=== PATIENT | male | born 1965 | race Caucasian/White ===

== ENCOUNTER 2022-06-20 16:30 | Inpatient (IN) ==
[2022-06-20] MEDS ORDERED: Naloxone 0.4 MG/ML INJ IVP PRN (19:25)
[2022-06-20] MEDS ORDERED: Melatonin 3 MG TABLET PO PRN (19:25)
[2022-06-20] MEDS ORDERED: Ondansetron ODT 4 MG TAB.RAPDIS SL PRN (19:25)
[2022-06-20] MEDS ORDERED: D5% in Water 1,000 ML IVC PRN (19:37)
[2022-06-20] MEDS ORDERED: Dextrose Gel 15 GM/37.5 ML TUBE PO PRN ×2 (19:37)
[2022-06-20] MEDS ORDERED: *HR* Dextrose 50 % in Water (Syg) 50 ML SYRINGE IVP PRN (19:37)
[2022-06-20] MEDS ORDERED: *HR* HYDROcodone/Acet 5/325 mg TABLET PO PRN (19:59)
[2022-06-20] MEDS ORDERED: 0.9 % Sodium Chloride 1,000 ML IVC SCH (21:00)
[2022-06-20] MEDS: Piperacillin/Tazobactam 3.375 GM in 0.9 % Sodium Chloride Mini Bag 100 ML IVPB SCH (23:40)
[2022-06-21] MEDS: Clindamycin 900 MG/50 ML 900 MG/50 ML IV.SOLN IVPB SCH ×4 (02:02→16:21)
[2022-06-21] MEDS ORDERED: *HR* HYDROcodone/Acet 5/325 mg TABLET PO PRN (02:23)
[2022-06-21] MEDS ORDERED: *HR* HYDROmorphone (PF) 1 MG/ML SYRINGE IVP ONE (02:23)
[2022-06-21 02:47] LABS: Basophils # 0.1 K/mcL (0.0-0.2); Basophils % 0.9 %; Eosinophils # 0.4 K/mcL (0.0-0.6); Eosinophils % 3.1 %; Hematocrit 38.3 % (37.5-50.1); Hemoglobin 12.6 g/dL (12.9-16.9); Immature Granulocytes % 0.7 % (0-4); Lymphocytes # 2.3 K/mcL (0.6-4.6); Lymphocytes % 18.2 %; Mean Corpuscular HGB Conc 32.9 g/dL (31.6-35.5); Mean Corpuscular Hemoglobin 29.6 pg (28.0-33.3); Mean Corpuscular Volume 90.1 fL (83.0-100.0); Mean Platelet Volume 8.8 fL (9.4-12.4); Monocytes % 7.9 %; Neutrophils # 8.9 K/mcL (1.6-8.9); Platelet Count 356 K/mcL (140-400); Red Blood Count 4.25 M/mcL (4.19-5.50); Red Cell Distribution Width 12.4 % (11.5-14.5); Segmented Neutrophils % 69.2 %; White Blood Count 12.8 K/mcL (4.3-11.1)
[2022-06-21 03:02] LABS: Calcium 8.1 mg/dL (8.6-10.3); Magnesium 1.7 mg/dL (1.6-2.6); Phosphorous 2.8 mg/dL (2.7-4.5); Potassium 3.5 mEq/L (3.5-5.1)
[2022-06-21] MEDS: Insulin LISPRO 300 UNITS/3 ML VIAL SUBQ SCH ×4 (03:56→18:14)
[2022-06-21] MEDS ORDERED: *HR* HYDROcodone/Acet 10/325 mg TABLET PO PRN (05:00)
[2022-06-21] MEDS ORDERED: Vancomycin 1,500 MG/265 ML IV.SOLN IVPB SCH (05:00)
[2022-06-21] MEDS: Piperacillin/Tazobactam 3.375 GM in 0.9 % Sodium Chloride Mini Bag 100 ML IVPB SCH ×3 (06:18→22:04)
[2022-06-21] MEDS ORDERED: Bupivacaine 0.5%-Epi 1:200,000 50 ML VIAL ONE (07:12)
[2022-06-21] MEDS ORDERED: *HR* Midazolam HCl 2 MG/2 ML VIAL ONE (07:32)
[2022-06-21] MEDS ORDERED: Ondansetron 4 MG/2 ML VIAL ONE (07:32)
[2022-06-21] MEDS ORDERED: *HR* FentaNYL (PF) 100 MCG/2 ML VIAL ONE ×2 (07:32→08:30)
[2022-06-21] MEDS ORDERED: Lidocaine -MPF 2% 5 ML VIAL ONE (07:32)
[2022-06-21] MEDS ORDERED: *HR* Propofol 200 MG/20 ML VIAL IVP ONE ×2 (07:33→08:50)
[2022-06-21] MEDS ORDERED: Lidocaine 1% 20 ML MDV ONE (08:10)
[2022-06-21] MEDS ORDERED: Ketamine HCL *QUVA* 50mg (1mL) SYRINGE ONE (08:30)
[2022-06-21] MEDS ORDERED: Nicotine 14 MG PATCH.TD24 TD SCH (09:00)
[2022-06-21] MEDS ORDERED: D5% in Water 1,000 ML IVC PRN (10:20)
[2022-06-21] MEDS ORDERED: *HR* Dextrose 50 % in Water (Syg) 50 ML SYRINGE IVP PRN (10:20)
[2022-06-21] MEDS ORDERED: Naloxone 0.4 MG/ML INJ IVP PRN (10:20)
[2022-06-21] MEDS ORDERED: Dextrose Gel 15 GM/37.5 ML TUBE PO PRN ×2 (10:20)
[2022-06-21] MEDS ORDERED: Ondansetron ODT 4 MG TAB.RAPDIS SL PRN (10:20)
[2022-06-21] MEDS: ALPRAZolam 1 MG TABLET PO SCH ×2 (14:32→22:04)
[2022-06-21] MEDS ORDERED: Clindamycin 900 MG/50 ML 900 MG/50 ML IV.SOLN IVPB SCH (16:00)
[2022-06-21] MEDS: *HR* HYDROcodone/Acet 5/325 mg TABLET PO PRN (16:21)
[2022-06-21] MEDS: Vancomycin 1,500 MG/265 ML IV.SOLN IVPB SCH (20:30)
[2022-06-21] MEDS: QUEtiapine Fumarate 25 MG TABLET PO SCH (22:04)
[2022-06-21] MEDS: rOPINIRole 1 MG TABLET PO SCH (22:04)
[2022-06-22] MEDS: Clindamycin 900 MG/50 ML 900 MG/50 ML IV.SOLN IVPB SCH ×3 (00:36→17:17)
[2022-06-22] MEDS: Insulin LISPRO 300 UNITS/3 ML VIAL SUBQ SCH ×4 (01:37→17:02)
[2022-06-22 06:33] LABS: Basophils # 0.1 K/mcL (0.0-0.2); Basophils % 0.6 %; Eosinophils # 0.3 K/mcL (0.0-0.6); Eosinophils % 2.6 %; Hematocrit 33.1 % (37.5-50.1); Hemoglobin 10.6 g/dL (12.9-16.9); Immature Granulocytes % 0.8 % (0-4); Lymphocytes # 1.2 K/mcL (0.6-4.6); Lymphocytes % 10.9 %; Mean Corpuscular Hemoglobin 29.9 pg (28.0-33.3); Mean Corpuscular Volume 93.5 fL (83.0-100.0); Mean Platelet Volume 8.7 fL (9.4-12.4); Monocytes # 0.9 K/mcL (0.0-1.3); Monocytes % 7.7 %; Neutrophils # 8.8 K/mcL (1.6-8.9); Platelet Count 217 K/mcL (140-400); Red Blood Count 3.54 M/mcL (4.19-5.50); Red Cell Distribution Width 12.5 % (11.5-14.5); Segmented Neutrophils % 77.4 %; White Blood Count 11.4 K/mcL (4.3-11.1)
[2022-06-22] MEDS: *HR* HYDROcodone/Acet 5/325 mg TABLET PO PRN (06:40)
[2022-06-22] MEDS: Piperacillin/Tazobactam 3.375 GM in 0.9 % Sodium Chloride Mini Bag 100 ML IVPB SCH ×3 (06:41→21:06)
[2022-06-22 06:46] LABS: Calcium 8.3 mg/dL (8.6-10.3); Potassium 3.6 mEq/L (3.5-5.1)
[2022-06-22] MEDS: Vancomycin 1,500 MG/265 ML IV.SOLN IVPB SCH (08:45)
[2022-06-22] MEDS: lisinopriL 20 MG TABLET PO SCH (09:48)
[2022-06-22] MEDS: QUEtiapine Fumarate 25 MG TABLET PO SCH ×2 (09:49→21:07)
[2022-06-22] MEDS: Nicotine 14 MG PATCH.TD24 TD SCH (09:49)
[2022-06-22] MEDS: amLODIPine 5 MG TABLET PO SCH (09:49)
[2022-06-22] MEDS: ALPRAZolam 1 MG TABLET PO SCH ×3 (09:49→21:07)
[2022-06-22] MEDS: *HR* HYDROcodone/Acet 10/325 mg TABLET PO PRN ×2 (10:09→16:11)
[2022-06-22] MEDS: Vancomycin 1,750 MG/517.5 ML IV.SOLN IVPB SCH ×2 (11:11→21:06)
[2022-06-22] MEDS: rOPINIRole 1 MG TABLET PO SCH (21:07)
[2022-06-23] MEDS: Clindamycin 900 MG/50 ML 900 MG/50 ML IV.SOLN IVPB SCH ×2 (00:05→14:41)
[2022-06-23] MEDS: Insulin LISPRO 300 UNITS/3 ML VIAL SUBQ SCH ×5 (01:20→23:56)
[2022-06-23 02:47] LABS: Basophils # 0.1 K/mcL (0.0-0.2); Basophils % 0.8 %; Eosinophils # 0.5 K/mcL (0.0-0.6); Eosinophils % 3.7 %; Hematocrit 34.9 % (37.5-50.1); Hemoglobin 11.4 g/dL (12.9-16.9); Immature Granulocytes % 0.8 % (0-4); Mean Corpuscular HGB Conc 32.7 g/dL (31.6-35.5); Mean Corpuscular Hemoglobin 29.4 pg (28.0-33.3); Mean Corpuscular Volume 89.9 fL (83.0-100.0); Mean Platelet Volume 8.7 fL (9.4-12.4); Monocytes # 1.1 K/mcL (0.0-1.3); Neutrophils # 8.6 K/mcL (1.6-8.9); Platelet Count 332 K/mcL (140-400); Red Blood Count 3.88 M/mcL (4.19-5.50); Red Cell Distribution Width 12.2 % (11.5-14.5); Segmented Neutrophils % 69.7 %; White Blood Count 12.4 K/mcL (4.3-11.1)
[2022-06-23 03:01] LABS: Calcium 8.1 mg/dL (8.6-10.3); Potassium 3.5 mEq/L (3.5-5.1)
[2022-06-23] MEDS: Piperacillin/Tazobactam 3.375 GM in 0.9 % Sodium Chloride Mini Bag 100 ML IVPB SCH ×3 (06:51→19:50)
[2022-06-23] MEDS: *HR* Enoxaparin 40 MG/0.4 ML SYRINGE SQ SCH (06:51)
[2022-06-23] MEDS: *HR* HYDROcodone/Acet 10/325 mg TABLET PO PRN (06:51)
[2022-06-23] MEDS ORDERED: Iopamidol - 370 500 ML MLS IVP ONE (09:02)
[2022-06-23] MEDS: Nicotine 14 MG PATCH.TD24 TD SCH (09:41)
[2022-06-23] MEDS: ALPRAZolam 1 MG TABLET PO SCH ×3 (09:42→19:40)
[2022-06-23] MEDS: amLODIPine 5 MG TABLET PO SCH (09:42)
[2022-06-23] MEDS: lisinopriL 20 MG TABLET PO SCH (09:42)
[2022-06-23] MEDS: QUEtiapine Fumarate 25 MG TABLET PO SCH ×2 (09:42→19:40)
[2022-06-23] MEDS: Vancomycin 1,750 MG/517.5 ML IV.SOLN IVPB SCH (10:24)
[2022-06-23] MEDS ORDERED: *HR* LORazepam 1 MG TABLET PO PRN ×3 (12:38)
[2022-06-23] MEDS: Aspirin Enteric Coated 81 MG Tablet PO SCH (14:21)
[2022-06-23] MEDS: *HR* HYDROcodone/Acet 5/325 mg TABLET PO PRN (18:30)
[2022-06-23] MEDS: rOPINIRole 1 MG TABLET PO SCH (19:40)
[2022-06-24] MEDS: *HR* Enoxaparin 40 MG/0.4 ML SYRINGE SQ SCH (04:55)
[2022-06-24] MEDS: Piperacillin/Tazobactam 3.375 GM in 0.9 % Sodium Chloride Mini Bag 100 ML IVPB SCH ×3 (04:57→21:54)
[2022-06-24] MEDS: Vancomycin 1,500 MG/265 ML IV.SOLN IVPB SCH ×2 (05:00→17:10)
[2022-06-24] MEDS: Insulin LISPRO 300 UNITS/3 ML VIAL SUBQ SCH ×4 (05:22→22:06)
[2022-06-24] MEDS: Aspirin Enteric Coated 81 MG Tablet PO SCH (09:31)
[2022-06-24] MEDS: amLODIPine 5 MG TABLET PO SCH (09:31)
[2022-06-24] MEDS: ALPRAZolam 1 MG TABLET PO SCH ×3 (09:31→21:53)
[2022-06-24] MEDS: lisinopriL 20 MG TABLET PO SCH (09:32)
[2022-06-24] MEDS: Nicotine 14 MG PATCH.TD24 TD SCH (09:32)
[2022-06-24] MEDS: QUEtiapine Fumarate 25 MG TABLET PO SCH ×2 (09:32→21:54)
[2022-06-24] MEDS: Folic Acid 1 MG TABLET PO SCH (09:32)
[2022-06-24] MEDS: Thiamine (B-1) 100 MG TABLET PO SCH (09:32)
[2022-06-24 10:53] LABS: Basophils # 0.1 K/mcL (0.0-0.2); Eosinophils # 0.6 K/mcL (0.0-0.6); Eosinophils % 4.9 %; Hematocrit 36.5 % (37.5-50.1); Hemoglobin 11.9 g/dL (12.9-16.9); Immature Granulocytes % 0.9 % (0-4); Lymphocytes # 1.5 K/mcL (0.6-4.6); Mean Corpuscular HGB Conc 32.6 g/dL (31.6-35.5); Mean Corpuscular Hemoglobin 29.5 pg (28.0-33.3); Mean Corpuscular Volume 90.3 fL (83.0-100.0); Mean Platelet Volume 8.5 fL (9.4-12.4); Monocytes # 0.9 K/mcL (0.0-1.3); Monocytes % 7.6 %; Neutrophils # 8.2 K/mcL (1.6-8.9); Platelet Count 379 K/mcL (140-400); Red Blood Count 4.04 M/mcL (4.19-5.50); Red Cell Distribution Width 12.3 % (11.5-14.5); Segmented Neutrophils % 72.6 %; White Blood Count 11.3 K/mcL (4.3-11.1)
[2022-06-24 11:13] LABS: Calcium 8.4 mg/dL (8.6-10.3); Potassium 3.5 mEq/L (3.5-5.1)
[2022-06-24] MEDS: *HR* HYDROcodone/Acet 5/325 mg TABLET PO PRN (15:22)
[2022-06-24] MEDS: carvediloL 6.25 MG TABLET PO SCH (17:10)
[2022-06-24] MEDS: rOPINIRole 1 MG TABLET PO SCH (21:54)
[2022-06-25 03:27] LABS: Basophils # 0.1 K/mcL (0.0-0.2); Basophils % 1.1 %; Eosinophils # 0.6 K/mcL (0.0-0.6); Eosinophils % 6.5 %; Hematocrit 35.4 % (37.5-50.1); Hemoglobin 11.6 g/dL (12.9-16.9); Immature Granulocytes % 1.4 % (0-4); Lymphocytes % 19.8 %; Mean Corpuscular HGB Conc 32.8 g/dL (31.6-35.5); Mean Corpuscular Hemoglobin 29.4 pg (28.0-33.3); Mean Corpuscular Volume 89.6 fL (83.0-100.0); Mean Platelet Volume 8.8 fL (9.4-12.4); Monocytes # 0.9 K/mcL (0.0-1.3); Monocytes % 9.2 %; Neutrophils # 6.1 K/mcL (1.6-8.9); Platelet Count 359 K/mcL (140-400); Red Blood Count 3.95 M/mcL (4.19-5.50); Red Cell Distribution Width 12.3 % (11.5-14.5); White Blood Count 9.9 K/mcL (4.3-11.1)
[2022-06-25 03:47] LABS: Calcium 8.4 mg/dL (8.6-10.3); Potassium 3.4 mEq/L (3.5-5.1)
[2022-06-25] MEDS: Vancomycin 1,500 MG/265 ML IV.SOLN IVPB SCH ×2 (06:10→19:37)
[2022-06-25] MEDS: Piperacillin/Tazobactam 3.375 GM in 0.9 % Sodium Chloride Mini Bag 100 ML IVPB SCH (06:10)
[2022-06-25] MEDS: *HR* Enoxaparin 40 MG/0.4 ML SYRINGE SQ SCH (06:16)
[2022-06-25] MEDS: lisinopriL 20 MG TABLET PO SCH (09:23)
[2022-06-25] MEDS: ALPRAZolam 1 MG TABLET PO SCH ×3 (09:23→21:43)
[2022-06-25] MEDS: Thiamine (B-1) 100 MG TABLET PO SCH (09:23)
[2022-06-25] MEDS: Aspirin Enteric Coated 81 MG Tablet PO SCH (09:23)
[2022-06-25] MEDS: QUEtiapine Fumarate 25 MG TABLET PO SCH ×2 (09:23→21:43)
[2022-06-25] MEDS: Folic Acid 1 MG TABLET PO SCH (09:23)
[2022-06-25] MEDS: amLODIPine 5 MG TABLET PO SCH (09:23)
[2022-06-25] MEDS: carvediloL 6.25 MG TABLET PO SCH ×2 (09:23→18:07)
[2022-06-25] MEDS: Ertapenem 1,000 MG in 0.9 % Sodium Chloride Mini Bag 100 ML IVPB SCH (09:24)
[2022-06-25] MEDS: Insulin LISPRO 300 UNITS/3 ML VIAL SUBQ SCH ×4 (09:25→21:45)
[2022-06-25] MEDS ORDERED: Heparin 1,000 UNITS/500 mL 500 ML ONE (11:34)
[2022-06-25] MEDS ORDERED: *HR* Heparin 10,000 UNIT/10 ML VIAL ONE (11:34)
[2022-06-25] MEDS ORDERED: Iopamidol - 300 100 ML INFUS..BTL ONE (11:34)
[2022-06-25] MEDS ORDERED: 0.9 % Sodium Chloride 1,000 ML ONE (11:34)
[2022-06-25] MEDS ORDERED: *HR* Midazolam HCl 2 MG/2 ML VIAL ONE (11:34)
[2022-06-25] MEDS: Nicotine 14 MG PATCH.TD24 TD SCH (12:50)
[2022-06-25 15:33] LABS: Estimated Average Glucose 258 mg/dl; Hemoglobin A1C 10.6 %
[2022-06-25] MEDS: *HR* HYDROcodone/Acet 5/325 mg TABLET PO PRN (21:44)
[2022-06-25] MEDS: rOPINIRole 1 MG TABLET PO SCH (21:45)
[2022-06-26] MEDS ORDERED: Regadenoson 0.4 MG/5 ML SYRINGE IVP ONE (06:22)
[2022-06-26] MEDS: *HR* Enoxaparin 40 MG/0.4 ML SYRINGE SQ SCH (06:44)
[2022-06-26] MEDS: amLODIPine 5 MG TABLET PO SCH (08:09)
[2022-06-26] MEDS: carvediloL 6.25 MG TABLET PO SCH ×2 (08:09→18:00)
[2022-06-26] MEDS: Folic Acid 1 MG TABLET PO SCH (08:09)
[2022-06-26] MEDS: ALPRAZolam 1 MG TABLET PO SCH ×3 (08:09→21:34)
[2022-06-26] MEDS: lisinopriL 20 MG TABLET PO SCH (08:09)
[2022-06-26] MEDS: Thiamine (B-1) 100 MG TABLET PO SCH (08:09)
[2022-06-26] MEDS: Aspirin Enteric Coated 81 MG Tablet PO SCH (08:10)
[2022-06-26] MEDS: QUEtiapine Fumarate 25 MG TABLET PO SCH ×2 (08:10→21:34)
[2022-06-26] MEDS: Ertapenem 1,000 MG in 0.9 % Sodium Chloride Mini Bag 100 ML IVPB SCH (08:10)
[2022-06-26] MEDS: Insulin LISPRO 300 UNITS/3 ML VIAL SUBQ SCH ×4 (08:11→21:33)
[2022-06-26 08:43] LABS: Basophils # 0.1 K/mcL (0.0-0.2); Eosinophils # 0.7 K/mcL (0.0-0.6); Eosinophils % 6.6 %; Hematocrit 36.1 % (37.5-50.1); Hemoglobin 11.8 g/dL (12.9-16.9); Immature Granulocytes % 1.9 % (0-4); Lymphocytes # 1.7 K/mcL (0.6-4.6); Lymphocytes % 17.2 %; Mean Corpuscular HGB Conc 32.7 g/dL (31.6-35.5); Mean Corpuscular Hemoglobin 29.5 pg (28.0-33.3); Mean Corpuscular Volume 90.3 fL (83.0-100.0); Mean Platelet Volume 8.8 fL (9.4-12.4); Monocytes # 1.1 K/mcL (0.0-1.3); Neutrophils # 6.2 K/mcL (1.6-8.9); Platelet Count 362 K/mcL (140-400); Red Cell Distribution Width 12.4 % (11.5-14.5); Segmented Neutrophils % 62.3 %; White Blood Count 9.9 K/mcL (4.3-11.1)
[2022-06-26 09:17] LABS: Calcium 8.2 mg/dL (8.6-10.3); Potassium 3.4 mEq/L (3.5-5.1)
[2022-06-26] MEDS: *HR* HYDROcodone/Acet 5/325 mg TABLET PO PRN (11:53)
[2022-06-26] MEDS: Vancomycin 1,250 MG/262.5 ML IV.SOLN IVPB SCH (11:54)
[2022-06-26] MEDS: hydrALAZINE 25 MG TABLET PO SCH ×2 (18:01→23:44)
[2022-06-26] MEDS ORDERED: Insulin DETEMIR 100 UNIT/ML X5UNITS SUBQ SCH (21:00)
[2022-06-26] MEDS: Melatonin 3 MG TABLET PO PRN (21:34)
[2022-06-26] MEDS: rOPINIRole 1 MG TABLET PO SCH (21:34)
[2022-06-27 05:38] LABS: Basophils # 0.1 K/mcL (0.0-0.2); Basophils % 0.9 %; Eosinophils # 0.6 K/mcL (0.0-0.6); Hematocrit 35.8 % (37.5-50.1); Hemoglobin 11.7 g/dL (12.9-16.9); Immature Granulocytes % 1.5 % (0-4); Lymphocytes # 1.8 K/mcL (0.6-4.6); Lymphocytes % 16.8 %; Mean Corpuscular HGB Conc 32.7 g/dL (31.6-35.5); Mean Corpuscular Hemoglobin 29.5 pg (28.0-33.3); Mean Corpuscular Volume 90.4 fL (83.0-100.0); Mean Platelet Volume 8.7 fL (9.4-12.4); Monocytes % 9.3 %; Platelet Count 379 K/mcL (140-400); Red Blood Count 3.96 M/mcL (4.19-5.50); Red Cell Distribution Width 12.3 % (11.5-14.5); Segmented Neutrophils % 65.5 %; White Blood Count 10.7 K/mcL (4.3-11.1)
[2022-06-27 05:46] LABS: Calcium 8.6 mg/dL (8.6-10.3); Potassium 3.5 mEq/L (3.5-5.1)
[2022-06-27] MEDS ORDERED: Regadenoson 0.4 MG/5 ML SYRINGE IVP ONE ×2 (06:04→09:35)
[2022-06-27] MEDS: carvediloL 6.25 MG TABLET PO SCH ×2 (07:20→16:04)
[2022-06-27] MEDS: *HR* Enoxaparin 40 MG/0.4 ML SYRINGE SQ SCH ×2 (07:20→20:39)
[2022-06-27] MEDS: Insulin LISPRO 300 UNITS/3 ML VIAL SUBQ SCH ×4 (07:20→22:00)
[2022-06-27] MEDS: amLODIPine 5 MG TABLET PO SCH (07:23)
[2022-06-27] MEDS: hydrALAZINE 25 MG TABLET PO SCH ×2 (07:23→16:04)
[2022-06-27] MEDS: Folic Acid 1 MG TABLET PO SCH (07:23)
[2022-06-27] MEDS: Aspirin Enteric Coated 81 MG Tablet PO SCH (07:23)
[2022-06-27] MEDS: lisinopriL 20 MG TABLET PO SCH (07:24)
[2022-06-27] MEDS: Thiamine (B-1) 100 MG TABLET PO SCH (07:24)
[2022-06-27] MEDS: ALPRAZolam 1 MG TABLET PO SCH ×4 (07:24→21:59)
[2022-06-27] MEDS: QUEtiapine Fumarate 25 MG TABLET PO SCH ×2 (07:24→21:59)
[2022-06-27] MEDS: Ertapenem 1,000 MG in 0.9 % Sodium Chloride Mini Bag 100 ML IVPB SCH (09:07)
[2022-06-27] MEDS: *HR* HYDROcodone/Acet 5/325 mg TABLET PO PRN ×2 (12:58→18:36)
[2022-06-27] MEDS: Vancomycin 1,250 MG/262.5 ML IV.SOLN IVPB SCH (13:00)
[2022-06-27] MEDS ORDERED: Vancomycin 1,000 MG, Sodium Chloride IRRigation 1,000 ML IR ONE (15:05)
[2022-06-27] MEDS ORDERED: Insulin DETEMIR 100 UNIT/ML X5UNITS SUBQ SCH (21:00)
[2022-06-27] MEDS: rOPINIRole 1 MG TABLET PO SCH (21:56)
[2022-06-28] MEDS: hydrALAZINE 25 MG TABLET PO SCH ×4 (00:48→23:14)
[2022-06-28 03:00] LABS: Calcium 8.1 mg/dL (8.6-10.3); Potassium 3.5 mEq/L (3.5-5.1)
[2022-06-28] MEDS: QUEtiapine Fumarate 25 MG TABLET PO SCH ×2 (07:47→20:33)
[2022-06-28] MEDS: Aspirin Enteric Coated 81 MG Tablet PO SCH (07:47)
[2022-06-28] MEDS: lisinopriL 20 MG TABLET PO SCH (07:47)
[2022-06-28] MEDS: Insulin LISPRO 300 UNITS/3 ML VIAL SUBQ SCH ×4 (07:47→20:33)
[2022-06-28] MEDS: Thiamine (B-1) 100 MG TABLET PO SCH (07:47)
[2022-06-28] MEDS: amLODIPine 5 MG TABLET PO SCH (07:47)
[2022-06-28] MEDS: Folic Acid 1 MG TABLET PO SCH (07:47)
[2022-06-28] MEDS: carvediloL 6.25 MG TABLET PO SCH ×2 (07:47→16:46)
[2022-06-28] MEDS: ALPRAZolam 1 MG TABLET PO SCH ×3 (07:47→20:32)
[2022-06-28] MEDS: Ertapenem 1,000 MG in 0.9 % Sodium Chloride Mini Bag 100 ML IVPB SCH (07:48)
[2022-06-28] MEDS: Vancomycin 1,250 MG/262.5 ML IV.SOLN IVPB SCH (10:45)
[2022-06-28] MEDS: rOPINIRole 1 MG TABLET PO SCH (20:32)
[2022-06-28] MEDS: *HR* HYDROcodone/Acet 5/325 mg TABLET PO PRN (20:32)
[2022-06-28] MEDS: Melatonin 3 MG TABLET PO PRN (20:33)
[2022-06-28] MEDS ORDERED: Insulin DETEMIR 100 UNIT/ML X5UNITS SUBQ SCH (21:00)
[2022-06-29 01:33] LABS: Basophils # 0.1 K/mcL (0.0-0.2); Basophils % 1.3 %; Eosinophils # 0.4 K/mcL (0.0-0.6); Eosinophils % 8.4 %; Hematocrit 34.7 % (37.5-50.1); Hemoglobin 11.2 g/dL (12.9-16.9); Immature Granulocytes % 2.7 % (0-4); Lymphocytes # 0.7 K/mcL (0.6-4.6); Lymphocytes % 13.6 %; Mean Corpuscular HGB Conc 32.3 g/dL (31.6-35.5); Mean Corpuscular Hemoglobin 29.2 pg (28.0-33.3); Mean Corpuscular Volume 90.6 fL (83.0-100.0); Mean Platelet Volume 8.7 fL (9.4-12.4); Monocytes # 0.9 K/mcL (0.0-1.3); Monocytes % 18.2 %; Neutrophils # 2.7 K/mcL (1.6-8.9); Platelet Count 356 K/mcL (140-400); Red Blood Count 3.83 M/mcL (4.19-5.50); Red Cell Distribution Width 12.3 % (11.5-14.5); Segmented Neutrophils % 55.8 %
[2022-06-29 01:40] LABS: White Blood Count 4.8 K/mcL (4.3-11.1)
[2022-06-29 01:55] LABS: Platelet Estimate Normal (Normal)
[2022-06-29 01:57] LABS: Calcium 8.3 mg/dL (8.6-10.3); Potassium 3.7 mEq/L (3.5-5.1)
[2022-06-29] MEDS: *HR* Enoxaparin 40 MG/0.4 ML SYRINGE SQ SCH (06:27)
[2022-06-29] MEDS: ALPRAZolam 1 MG TABLET PO SCH ×3 (09:46→21:00)
[2022-06-29] MEDS: Thiamine (B-1) 100 MG TABLET PO SCH (09:46)
[2022-06-29] MEDS: QUEtiapine Fumarate 25 MG TABLET PO SCH ×2 (09:46→21:29)
[2022-06-29] MEDS: *HR* HYDROcodone/Acet 5/325 mg TABLET PO PRN (09:46)
[2022-06-29] MEDS: Aspirin Enteric Coated 81 MG Tablet PO SCH (09:46)
[2022-06-29] MEDS: carvediloL 6.25 MG TABLET PO SCH ×2 (09:46→17:18)
[2022-06-29] MEDS: lisinopriL 20 MG TABLET PO SCH (09:46)
[2022-06-29] MEDS: Folic Acid 1 MG TABLET PO SCH (09:46)
[2022-06-29] MEDS: amLODIPine 5 MG TABLET PO SCH (09:47)
[2022-06-29] MEDS: hydrALAZINE 25 MG TABLET PO SCH ×2 (09:47→17:18)
[2022-06-29] MEDS: Ertapenem 1,000 MG in 0.9 % Sodium Chloride Mini Bag 100 ML IVPB SCH (09:47)
[2022-06-29] MEDS: Insulin LISPRO 300 UNITS/3 ML VIAL SUBQ SCH ×3 (09:48→17:18)
[2022-06-29] MEDS: Vancomycin 1,250 MG/262.5 ML IV.SOLN IVPB SCH (12:27)
[2022-06-29] MEDS: Melatonin 3 MG TABLET PO PRN (21:29)
[2022-06-29] MEDS: Insulin DETEMIR 100 UNIT/ML X5UNITS SUBQ SCH (21:29)
[2022-06-29] MEDS: rOPINIRole 1 MG TABLET PO SCH (21:29)
[2022-06-30] MEDS: Insulin LISPRO 300 UNITS/3 ML VIAL SUBQ SCH ×5 (02:11→21:13)
[2022-06-30] MEDS: hydrALAZINE 25 MG TABLET PO SCH ×3 (02:11→18:38)
[2022-06-30 02:31] LABS: Calcium 8.3 mg/dL (8.6-10.3); Potassium 3.4 mEq/L (3.5-5.1)
[2022-06-30] MEDS: *HR* Enoxaparin 40 MG/0.4 ML SYRINGE SQ SCH (04:01)
[2022-06-30] MEDS: Aspirin Enteric Coated 81 MG Tablet PO SCH (08:20)
[2022-06-30] MEDS: carvediloL 6.25 MG TABLET PO SCH ×2 (08:20→18:38)
[2022-06-30] MEDS: ALPRAZolam 1 MG TABLET PO SCH ×3 (08:20→21:12)
[2022-06-30] MEDS: Thiamine (B-1) 100 MG TABLET PO SCH (08:20)
[2022-06-30] MEDS: QUEtiapine Fumarate 25 MG TABLET PO SCH ×2 (08:20→20:54)
[2022-06-30] MEDS: amLODIPine 5 MG TABLET PO SCH (08:20)
[2022-06-30] MEDS: Folic Acid 1 MG TABLET PO SCH (08:20)
[2022-06-30] MEDS: 0.9 % Sodium Chloride 1,000 ML IVC SCH ×2 (08:21→23:08)
[2022-06-30] MEDS: Ertapenem 1,000 MG in 0.9 % Sodium Chloride Mini Bag 100 ML IVPB SCH (08:22)
[2022-06-30] MEDS: Vancomycin 1,250 MG/262.5 ML IV.SOLN IVPB SCH (11:38)
[2022-06-30 13:15] LABS: Potassium 3.7 mEq/L (3.5-5.1)
[2022-06-30] MEDS ORDERED: Iopamidol - 370 200 ML INFUS..BTL ONE (13:44)
[2022-06-30] MEDS ORDERED: Heparin 1,000 UNITS/500 mL 500 ML ONE (13:44)
[2022-06-30] MEDS ORDERED: Nitroglycerin 1,000 MCG/5 ML VIAL IV ONE (13:44)
[2022-06-30] MEDS ORDERED: *HR* Heparin 10,000 UNIT/10 ML VIAL ONE ×2 (13:44→15:04)
[2022-06-30] MEDS ORDERED: 0.9 % Sodium Chloride 1,000 ML ONE ×2 (13:44→14:07)
[2022-06-30] MEDS ORDERED: *HR* FentaNYL (PF) 100 MCG/2 ML VIAL ONE ×2 (13:49→16:15)
[2022-06-30] MEDS ORDERED: *HR* Midazolam HCl 2 MG/2 ML VIAL ONE (13:49)
[2022-06-30] MEDS ORDERED: Vancomycin 1,000 MG, Sodium Chloride IRRigation 1,000 ML IR ONE (14:20)
[2022-06-30 18:18] LABS: INR 1.1; Prothrombin Time 11.8 Seconds (9.4-12.1)
[2022-06-30 18:21] LABS: Activated Partial Thrombo Time 37.1 Seconds (26.0-36.0)
[2022-06-30 18:28] LABS: Chol/HDL Ratio 4.3 (0-4.9)
[2022-06-30] MEDS: rOPINIRole 1 MG TABLET PO SCH (20:54)
[2022-06-30] MEDS: Chlorhexidine Rinse 15 ML MOUTHWASH MM SCH (20:54)
[2022-06-30] MEDS: Melatonin 3 MG TABLET PO PRN (20:55)
[2022-06-30] MEDS: Insulin DETEMIR 100 UNIT/ML X5UNITS SUBQ SCH (21:13)
[2022-07-01] MEDS: hydrALAZINE 25 MG TABLET PO SCH ×4 (00:07→23:48)
[2022-07-01 03:03] LABS: Basophils % 1.1 %; Eosinophils # 0.3 K/mcL (0.0-0.6); Eosinophils % 6.9 %; Hematocrit 32.6 % (37.5-50.1); Hemoglobin 10.5 g/dL (12.9-16.9); Immature Granulocytes % 1.3 % (0-4); Lymphocytes # 1.2 K/mcL (0.6-4.6); Lymphocytes % 30.6 %; Mean Corpuscular HGB Conc 32.2 g/dL (31.6-35.5); Mean Corpuscular Hemoglobin 28.9 pg (28.0-33.3); Mean Corpuscular Volume 89.8 fL (83.0-100.0); Monocytes # 0.6 K/mcL (0.0-1.3); Monocytes % 16.4 %; Neutrophils # 1.7 K/mcL (1.6-8.9); Platelet Count 287 K/mcL (140-400); Red Blood Count 3.63 M/mcL (4.19-5.50); Red Cell Distribution Width 12.3 % (11.5-14.5); Segmented Neutrophils % 43.7 %; White Blood Count 3.8 K/mcL (4.3-11.1)
[2022-07-01 03:06] LABS: Calcium 7.8 mg/dL (8.6-10.3); Potassium 3.6 mEq/L (3.5-5.1)
[2022-07-01] MEDS: *HR* Enoxaparin 40 MG/0.4 ML SYRINGE SQ SCH (04:49)
[2022-07-01] MEDS ORDERED: NiCARdipine 2.5 MG/10 ML Syringe IVPB ONE (05:57)
[2022-07-01] MEDS ORDERED: DOBUTamine 1,000 MG/250 ML BAG ONE (05:57)
[2022-07-01] MEDS ORDERED: del Nido Cardioplegia Solution PF ONE ×2 (08:00)
[2022-07-01] MEDS ORDERED: Norepinephrine 4 MG in 0.9 % Sodium Chloride 250 ML IVC PRN (08:00)
[2022-07-01] MEDS ORDERED: Heparin 15,000 UNIT in 0.9 % Sodium Chloride 500 ML IR ONE (08:00)
[2022-07-01] MEDS ORDERED: Buckersberg's Blood Cardioplegia PF ONE (08:00)
[2022-07-01] MEDS ORDERED: *HR* Midazolam HCl 5 MG/5 ML VIAL IVP ONE (08:02)
[2022-07-01] MEDS ORDERED: *HR* FentaNYL (PF) 1,000 MCG/20 ML VIAL ONE (08:02)
[2022-07-01] MEDS ORDERED: niCARdipine 20 MG/200 ML MLS IVC ONE (08:04)
[2022-07-01] MEDS ORDERED: *HR* Norepinephrine 4 MG/4 ML VIAL IVC ONE (08:04)
[2022-07-01] MEDS ORDERED: *HR* Rocuronium Bromide 50 MG/5 ML VIAL ONE ×2 (08:04→14:30)
[2022-07-01] MEDS ORDERED: Tranexamic Acid 1,000 MG/10 ML VIAL ONE (08:08)
[2022-07-01] MEDS ORDERED: *HR* Etomidate 20 MG/10 ML AMPUL IVP ONE (08:08)
[2022-07-01] MEDS ORDERED: Calcium Gluconate 1,000 MG/10 ML VIAL ONE (08:12)
[2022-07-01] MEDS ORDERED: Protamine Sulfate 250 MG/25 ML VIAL IVP ONE (08:12)
[2022-07-01] MEDS: Chlorhexidine Rinse 15 ML MOUTHWASH MM SCH ×2 (08:17→20:24)
[2022-07-01] MEDS: carvediloL 6.25 MG TABLET PO SCH ×2 (08:19→17:42)
[2022-07-01] MEDS: Insulin LISPRO 300 UNITS/3 ML VIAL SUBQ SCH ×2 (08:19→14:30)
[2022-07-01] MEDS ORDERED: Papaverine 60 MG/2 ML VIAL IVP ONE (08:24)
[2022-07-01 09:48] LABS: ABG Base Excess 0 mEq/L (-2 to 3); ABG Chloride 103 mEq/L (98-107); ABG Glucose 222 mg/dL (60-95); ABG HCO3 26 mEq/L (21-27); ABG Ionized Calcium 1.16 mmol/L (1.15-1.35); ABG Oxygen Saturation 100 % (95-98); ABG PCO2 49 mmHg (35-45); ABG PH 7.33 pH Units (7.32-7.45); ABG PO2 283 mmHg (85-104); ABG TCO2 28 mEq/L (20-26)
[2022-07-01] MEDS: CeFAZolin Syr 2,000MG/20 ML 2,000 MG/20 ML SYRINGE IVPB ONE ×2 (09:55→14:30)
[2022-07-01] MEDS: Ertapenem 1,000 MG in 0.9 % Sodium Chloride Mini Bag 100 ML IVPB SCH (10:27)
[2022-07-01 11:25] LABS: ABG Base Excess 1 mEq/L (-2 to 3); ABG Chloride 102 mEq/L (98-107); ABG Glucose 172 mg/dL (60-95); ABG HCO3 25 mEq/L (21-27); ABG Ionized Calcium 1.16 mmol/L (1.15-1.35); ABG Oxygen Saturation 99 % (95-98); ABG PCO2 41 mmHg (35-45); ABG PO2 122 mmHg (85-104); ABG TCO2 27 mEq/L (20-26)
[2022-07-01] MEDS: Vancomycin 1,250 MG/262.5 ML IV.SOLN IVPB SCH (11:40)
[2022-07-01] MEDS ORDERED: *HR* Magnesium Sulfate 2 GM/50 ML PIGGYBACK IVPB ONE (12:30)
[2022-07-01] MEDS ORDERED: Lidocaine 2% Syringe 100 MG/5 ML IVP ONE (12:30)
[2022-07-01] MEDS ORDERED: Mannitol 25% vial 12.5 GM/50 ML VIAL IVP ONE (12:30)
[2022-07-01] MEDS ORDERED: Albumin Human 25% 25 GM/100 ML IV.SOLN IVPB ONE (12:30)
[2022-07-01] MEDS ORDERED: *HR* Heparin 10,000 UNIT/10 ML VIAL IR ONE (12:30)
[2022-07-01] MEDS ORDERED: *HR* Phenylephrine 10 MG/ML VIAL IVC ONE (12:30)
[2022-07-01 13:40] LABS: ABG Base Excess 2 mEq/L (-2 to 3); ABG Chloride 101 mEq/L (98-107); ABG Glucose 151 mg/dL (60-95); ABG HCO3 27 mEq/L (21-27); ABG Ionized Calcium 1.09 mmol/L (1.15-1.35); ABG Oxygen Saturation 100 % (95-98); ABG PCO2 45 mmHg (35-45); ABG PH 7.38 pH Units (7.32-7.45); ABG PO2 595 mmHg (85-104); ABG TCO2 28 mEq/L (20-26)
[2022-07-01] MEDS ORDERED: Albumin Human 5% 12.5 GM/250 ML IV.SOLN ONE (14:15)
[2022-07-01] MEDS: Aspirin Enteric Coated 81 MG Tablet PO SCH (14:29)
[2022-07-01] MEDS: Folic Acid 1 MG TABLET PO SCH (14:29)
[2022-07-01] MEDS: ALPRAZolam 1 MG TABLET PO SCH ×3 (14:30→22:52)
[2022-07-01] MEDS: Thiamine (B-1) 100 MG TABLET PO SCH (14:30)
[2022-07-01] MEDS: amLODIPine 5 MG TABLET PO SCH (14:30)
[2022-07-01] MEDS: QUEtiapine Fumarate 25 MG TABLET PO SCH ×2 (14:30→22:51)
[2022-07-01 14:32] LABS: ABG Base Excess -2 mEq/L (-2 to 3); ABG Chloride 103 mEq/L (98-107); ABG Glucose 175 mg/dL (60-95); ABG HCO3 24 mEq/L (21-27); ABG Ionized Calcium 1.26 mmol/L (1.15-1.35); ABG Oxygen Saturation 97 % (95-98); ABG PCO2 42 mmHg (35-45); ABG PH 7.36 pH Units (7.32-7.45); ABG PO2 97 mmHg (85-104); ABG TCO2 25 mEq/L (20-26)
[2022-07-01] MEDS: Norepinephrine 4 MG/254 ML IV.SOLN IVC SCH (15:17)
[2022-07-01] MEDS: Albumin Human 5% 12.5 GM/250 ML IV.SOLN IVPB PRN ×4 (15:40→16:50)
[2022-07-01 15:47] LABS: ABG Base Excess -1 mEq/L (-2 to 3); ABG HCO3 24 mEq/L (21-27); ABG Oxygen Saturation 100 % (95-98); ABG PCO2 40 mmHg (35-45); ABG PH 7.38 pH Units (7.32-7.45); ABG PO2 497 mmHg (85-104); ABG TCO2 25 mEq/L (20-26); Blood Gas Modality ASSIST CONTROL; Blood Gas VT 500 cc
[2022-07-01] MEDS ORDERED: Albumin Human 5% 25.0 GM/500 ML IV.SOLN ONE ×2 (15:50→16:32)
[2022-07-01 16:08] LABS: VBG Base Excess -2 mEq/L; VBG Chloride 103 mEq/L (98-107); VBG Glucose 197 mg/dl (65-95); VBG HCO3 23 mEq/L (21-27); VBG Ionized Calcium 1.16 mmol/L (1.15-1.35); VBG Oxygen Saturation 100 %; VBG PCO2 38 mmHg (41-51); VBG PH 7.39 pH Units (7.32-7.42); VBG PO2 276 mmHg (25-50); VBG Total CO2 24 mEq/L
[2022-07-01] MEDS ORDERED: Potassium Chloride 40 MEQ/200 ML BAG IVPB PRN (16:14)
[2022-07-01] MEDS ORDERED: Insulin Regular, Human 100 UNIT/ML IV PRN (16:14)
[2022-07-01] MEDS ORDERED: *HR* Dextrose 50 % in Water (Syg) 50 ML SYRINGE IVP PRN (16:14)
[2022-07-01] MEDS ORDERED: *HR* FentaNYL (PF) 100 MCG/2 ML VIAL ONE (18:10)
[2022-07-01] MEDS: *HR* FentaNYL (PF) 100 MCG/2 ML VIAL IVP PRN ×2 (18:50→23:24)
[2022-07-01 20:18] LABS: ABG Base Excess -2 mEq/L (-2 to 3); ABG HCO3 23 mEq/L (21-27); ABG Oxygen Saturation 99 % (95-98); ABG PCO2 40 mmHg (35-45); ABG PH 7.37 pH Units (7.32-7.45); ABG PO2 118 mmHg (85-104); ABG TCO2 25 mEq/L (20-26); Blood Gas Modality AF; Blood Gas VT 500 cc
[2022-07-01] MEDS ORDERED: *HR* OxyCODONE/APAP 5/325 TABLET ONE (20:21)
[2022-07-01] MEDS ORDERED: Chlorhexidine Rinse 15 ML MOUTHWASH ONE (20:22)
[2022-07-01] MEDS: *HR* HYDROcodone/Acet 5/325 mg TABLET PO PRN (20:23)
[2022-07-01] MEDS ORDERED: *HR* HYDROcodone/Acet 5/325 mg TABLET ONE (20:23)
[2022-07-01] MEDS ORDERED: rOPINIRole 1 MG TABLET ONE (20:29)
[2022-07-01] MEDS: rOPINIRole 1 MG TABLET PO SCH (20:30)
[2022-07-01 20:51] LABS: Basophils % 0.4 %; Eosinophils # 0.1 K/mcL (0.0-0.6); Hematocrit 25.1 % (37.5-50.1); Immature Granulocytes % 1.3 % (0-4); Lymphocytes % 11.3 %; Mean Corpuscular HGB Conc 33.1 g/dL (31.6-35.5); Mean Corpuscular Hemoglobin 29.4 pg (28.0-33.3); Mean Platelet Volume 8.7 fL (9.4-12.4); Monocytes % 11.2 %; Neutrophils # 6.7 K/mcL (1.6-8.9); Platelet Count 196 K/mcL (140-400); Red Blood Count 2.82 M/mcL (4.19-5.50); Red Cell Distribution Width 12.4 % (11.5-14.5); Segmented Neutrophils % 74.8 %
[2022-07-01 20:52] LABS: Hemoglobin 8.3 g/dL (12.9-16.9)
[2022-07-01 21:02] LABS: INR 1.2; Prothrombin Time 12.9 Seconds (9.4-12.1)
[2022-07-01 21:05] LABS: Activated Partial Thrombo Time 34.9 Seconds (26.0-36.0)
[2022-07-01 21:16] LABS: Calcium 7.9 mg/dL (8.6-10.3); Magnesium 2.7 mg/dL (1.6-2.6)
[2022-07-01] MEDS: Nitroprusside 0.9% NaCl 20 MG/100 ML VIAL IVC SCH (21:21)
[2022-07-01 21:23] LABS: ABG Base Excess -3 mEq/L (-2 to 3); ABG HCO3 21 mEq/L (21-27); ABG Oxygen Saturation 98 % (95-98); ABG PCO2 34 mmHg (35-45); ABG PO2 105 mmHg (85-104); ABG TCO2 23 mEq/L (20-26); Blood Gas Modality CPAP/PS; Blood Gas Pressure Support 5 cm H2O
[2022-07-01 22:46] LABS: ABG Base Excess -2 mEq/L (-2 to 3); ABG HCO3 23 mEq/L (21-27); ABG Oxygen Saturation 95 % (95-98); ABG PCO2 36 mmHg (35-45); ABG PH 7.41 pH Units (7.32-7.45); ABG PO2 76 mmHg (85-104); ABG TCO2 24 mEq/L (20-26); Blood Gas Modality 3LPM
[2022-07-01] MEDS: Albumin 25% 25gram/100mL 25 GM/100 ML IV.SOLN IVPB SCH (23:26)
[2022-07-01] MEDS: CeFAZolin 2,000 MG/120 ML BAG IVPB SCH (23:26)
[2022-07-02] MEDS: *HR* HYDROcodone/Acet 5/325 mg TABLET PO PRN (02:20)
[2022-07-02 04:15] LABS: Basophils % 0.4 %; Eosinophils % 0.4 %; Hematocrit 22.7 % (37.5-50.1); Hemoglobin 7.4 g/dL (12.9-16.9); Immature Granulocytes % 1.1 % (0-4); Lymphocytes # 0.9 K/mcL (0.6-4.6); Lymphocytes % 15.3 %; Mean Corpuscular HGB Conc 32.6 g/dL (31.6-35.5); Mean Corpuscular Hemoglobin 29.2 pg (28.0-33.3); Mean Corpuscular Volume 89.7 fL (83.0-100.0); Mean Platelet Volume 9.2 fL (9.4-12.4); Monocytes # 0.6 K/mcL (0.0-1.3); Monocytes % 10.9 %; Neutrophils # 4.1 K/mcL (1.6-8.9); Platelet Count 205 K/mcL (140-400); Red Blood Count 2.53 M/mcL (4.19-5.50); Red Cell Distribution Width 12.3 % (11.5-14.5); Segmented Neutrophils % 71.9 %; White Blood Count 5.7 K/mcL (4.3-11.1)
[2022-07-02 04:35] LABS: Calcium 7.8 mg/dL (8.6-10.3); Magnesium 2.5 mg/dL (1.6-2.6); Potassium 3.9 mEq/L (3.5-5.1)
[2022-07-02] MEDS: *HR* Enoxaparin 40 MG/0.4 ML SYRINGE SQ SCH (05:03)
[2022-07-02] MEDS: *HR* FentaNYL (PF) 100 MCG/2 ML VIAL IVP PRN (05:25)
[2022-07-02] MEDS: Norepinephrine 4 MG/254 ML IV.SOLN IVC SCH (06:08)
[2022-07-02 07:27] LABS: ABG Base Excess 2 mEq/L (-2 to 3); ABG Chloride 100 mEq/L (98-107); ABG Glucose 142 mg/dL (60-95); ABG HCO3 26 mEq/L (21-27); ABG Ionized Calcium 1.01 mmol/L (1.15-1.35); ABG PCO2 39 mmHg (35-45); ABG PH 7.44 pH Units (7.32-7.45); ABG PO2 > 630 mmHg (85-104); ABG TCO2 28 mEq/L (20-26)
[2022-07-02 07:27] LABS: ABG Base Excess 1 mEq/L (-2 to 3); ABG Chloride 100 mEq/L (98-107); ABG Glucose 137 mg/dL (60-95); ABG HCO3 25 mEq/L (21-27); ABG Ionized Calcium 0.97 mmol/L (1.15-1.35); ABG PCO2 41 mmHg (35-45); ABG PO2 > 630 mmHg (85-104); ABG TCO2 27 mEq/L (20-26)
[2022-07-02] MEDS: carvediloL 6.25 MG TABLET PO SCH ×2 (07:47→16:03)
[2022-07-02] MEDS: Albumin 25% 25gram/100mL 25 GM/100 ML IV.SOLN IVPB SCH ×3 (07:47→23:22)
[2022-07-02] MEDS: Chlorhexidine Rinse 15 ML MOUTHWASH MM SCH ×3 (07:48→21:04)
[2022-07-02] MEDS: Aspirin Enteric Coated 81 MG Tablet PO SCH (07:48)
[2022-07-02] MEDS: Thiamine (B-1) 100 MG TABLET PO SCH (07:48)
[2022-07-02] MEDS: hydrALAZINE 25 MG TABLET PO SCH ×3 (07:48→23:22)
[2022-07-02] MEDS: Folic Acid 1 MG TABLET PO SCH (07:48)
[2022-07-02] MEDS: ALPRAZolam 1 MG TABLET PO SCH ×3 (07:49→21:03)
[2022-07-02] MEDS: QUEtiapine Fumarate 25 MG TABLET PO SCH ×2 (07:49→21:04)
[2022-07-02] MEDS: Ertapenem 1,000 MG in 0.9 % Sodium Chloride Mini Bag 100 ML IVPB SCH (07:49)
[2022-07-02] MEDS: CeFAZolin 2,000 MG/120 ML BAG IVPB SCH ×2 (07:58→14:50)
[2022-07-02] MEDS ORDERED: lisinopriL 20 MG TABLET PO SCH (09:00)
[2022-07-02] MEDS: Vancomycin 1,250 MG/262.5 ML IV.SOLN IVPB SCH (11:20)
[2022-07-02] MEDS ORDERED: 0.9 % Sodium Chloride 500 ML ONE (14:07)
[2022-07-02] MEDS: Insulin LISPRO 300 UNITS/3 ML VIAL SUBQ SCH ×3 (14:22→21:05)
[2022-07-02] MEDS: Nitroprusside 0.9% NaCl 20 MG/100 ML VIAL IVC SCH (14:51)
[2022-07-02] MEDS ORDERED: Vancomycin 1,000 MG, Sodium Chloride IRRigation 1,000 ML IR ONE (15:30)
[2022-07-02] MEDS ORDERED: Aspirin 81 MG TAB.CHEW PO ONE (17:00)
[2022-07-02] MEDS ORDERED: Insulin DETEMIR 100 UNIT/ML X5UNITS SUBQ SCH (21:00)
[2022-07-02] MEDS: rOPINIRole 1 MG TABLET PO SCH (21:04)
[2022-07-03 03:53] LABS: Hematocrit 20.3 % (37.5-50.1); Hemoglobin 6.7 g/dL (12.9-16.9); Mean Corpuscular Hemoglobin 29.4 pg (28.0-33.3); Mean Platelet Volume 9.6 fL (9.4-12.4); Platelet Count 197 K/mcL (140-400); Red Blood Count 2.28 M/mcL (4.19-5.50); Red Cell Distribution Width 12.5 % (11.5-14.5)
[2022-07-03 03:55] LABS: White Blood Count 8.9 K/mcL (4.3-11.1)
[2022-07-03 04:07] LABS: Calcium 8.3 mg/dL (8.6-10.3); Potassium 3.6 mEq/L (3.5-5.1)
[2022-07-03] MEDS: *HR* Enoxaparin 40 MG/0.4 ML SYRINGE SQ SCH (06:36)
[2022-07-03] MEDS: Norepinephrine 4 MG/254 ML IV.SOLN IVC SCH ×2 (07:52→13:01)
[2022-07-03] MEDS: Ertapenem 1,000 MG in 0.9 % Sodium Chloride Mini Bag 100 ML IVPB SCH (07:53)
[2022-07-03] MEDS: Albumin 25% 25gram/100mL 25 GM/100 ML IV.SOLN IVPB SCH ×2 (07:53→15:16)
[2022-07-03] MEDS: hydrALAZINE 25 MG TABLET PO SCH ×3 (07:54→23:57)
[2022-07-03] MEDS: ALPRAZolam 1 MG TABLET PO SCH ×3 (07:54→20:34)
[2022-07-03] MEDS: Folic Acid 1 MG TABLET PO SCH (07:54)
[2022-07-03] MEDS: Aspirin Enteric Coated 81 MG Tablet PO SCH (07:54)
[2022-07-03] MEDS: Thiamine (B-1) 100 MG TABLET PO SCH (07:54)
[2022-07-03] MEDS: carvediloL 6.25 MG TABLET PO SCH ×2 (07:54→17:18)
[2022-07-03] MEDS: QUEtiapine Fumarate 25 MG TABLET PO SCH ×2 (07:54→20:35)
[2022-07-03] MEDS: Bumetanide 1 MG/4 ML VIAL IVP SCH ×2 (08:00→17:18)
[2022-07-03] MEDS: lisinopriL 5 MG TABLET PO SCH (08:00)
[2022-07-03] MEDS: Insulin LISPRO 300 UNITS/3 ML VIAL SUBQ SCH ×4 (08:20→20:35)
[2022-07-03] MEDS: *HR* HYDROcodone/Acet 5/325 mg TABLET PO PRN (08:26)
[2022-07-03] MEDS ORDERED: Acetaminophen 325 MG TABLET PO PRN (08:58)
[2022-07-03] MEDS: polyethylene glycoL 3350 17 GM POWD.PACK PO SCH (09:51)
[2022-07-03] MEDS ORDERED: Furosemide 20 MG/2 ML VIAL IVP ONE ×2 (11:26→11:28)
[2022-07-03] MEDS: Vancomycin 1,250 MG/262.5 ML IV.SOLN IVPB SCH (13:03)
[2022-07-03] MEDS: Nicotine 21 MG PATCH.TD24 TD SCH (15:15)
[2022-07-03 16:10] LABS: Hematocrit 26.6 % (37.5-50.1)
[2022-07-03 16:11] LABS: Hemoglobin 8.7 g/dL (12.9-16.9)
[2022-07-03] MEDS ORDERED: Beer can PO SCH (17:00)
[2022-07-03] MEDS: Nitroprusside 0.9% NaCl 20 MG/100 ML VIAL IVC SCH (17:15)
[2022-07-03] MEDS: rOPINIRole 1 MG TABLET PO SCH (20:35)
[2022-07-03] MEDS: Chlorhexidine Rinse 15 ML MOUTHWASH MM SCH (20:35)
[2022-07-03] MEDS ORDERED: Albumin Human 5% 12.5 GM/250 ML IV.SOLN ONE (21:06)
[2022-07-04] MEDS: Norepinephrine 4 MG/254 ML IV.SOLN IVC SCH (02:40)
[2022-07-04 04:53] LABS: Hematocrit 25.3 % (37.5-50.1); Hemoglobin 8.2 g/dL (12.9-16.9); Mean Corpuscular HGB Conc 32.4 g/dL (31.6-35.5); Mean Corpuscular Hemoglobin 28.9 pg (28.0-33.3); Mean Corpuscular Volume 89.1 fL (83.0-100.0); Mean Platelet Volume 9.8 fL (9.4-12.4); Platelet Count 199 K/mcL (140-400); Red Blood Count 2.84 M/mcL (4.19-5.50); Red Cell Distribution Width 13.3 % (11.5-14.5); White Blood Count 9.7 K/mcL (4.3-11.1)
[2022-07-04 05:08] LABS: Calcium 8.2 mg/dL (8.6-10.3)
[2022-07-04] MEDS: *HR* Enoxaparin 40 MG/0.4 ML SYRINGE SQ SCH (06:11)
[2022-07-04] MEDS: Albumin 25% 25gram/100mL 25 GM/100 ML IV.SOLN IVPB SCH ×2 (07:46)
[2022-07-04] MEDS: polyethylene glycoL 3350 17 GM POWD.PACK PO SCH (07:46)
[2022-07-04] MEDS: Chlorhexidine Rinse 15 ML MOUTHWASH MM SCH (07:49)
[2022-07-04] MEDS: Ertapenem 1,000 MG in 0.9 % Sodium Chloride Mini Bag 100 ML IVPB SCH (07:49)
[2022-07-04] MEDS: Bumetanide 1 MG/4 ML VIAL IVP SCH ×2 (07:49→16:48)
[2022-07-04] MEDS: carvediloL 6.25 MG TABLET PO SCH (07:54)
[2022-07-04] MEDS: ALPRAZolam 1 MG TABLET PO SCH ×3 (07:54→21:06)
[2022-07-04] MEDS: hydrALAZINE 25 MG TABLET PO SCH ×2 (07:56→16:49)
[2022-07-04] MEDS: QUEtiapine Fumarate 25 MG TABLET PO SCH ×2 (07:56→21:07)
[2022-07-04] MEDS: Aspirin Enteric Coated 81 MG Tablet PO SCH (07:57)
[2022-07-04] MEDS: lisinopriL 5 MG TABLET PO SCH (07:58)
[2022-07-04] MEDS: Thiamine (B-1) 100 MG TABLET PO SCH (07:58)
[2022-07-04] MEDS: Nicotine 21 MG PATCH.TD24 TD SCH (07:58)
[2022-07-04] MEDS: Folic Acid 1 MG TABLET PO SCH (07:58)
[2022-07-04] MEDS: Insulin LISPRO 300 UNITS/3 ML VIAL SUBQ SCH ×4 (08:00→21:07)
[2022-07-04] MEDS ORDERED: NON-FORMULARY MEDICATION 1 EACH EACH (Ezetimibe [Zetia] 10 MG Tablet) PO SCH (11:53)
[2022-07-04] MEDS ORDERED: *HR* Dextrose 50 % in Water (Syg) 50 ML SYRINGE IVP PRN (11:53)
[2022-07-04] MEDS ORDERED: Potassium Chloride 40 MEQ/200 ML BAG IVPB PRN (11:53)
[2022-07-04] MEDS ORDERED: Dextrose Gel 15 GM/37.5 ML TUBE PO PRN ×2 (11:53)
[2022-07-04] MEDS ORDERED: Acetaminophen 325 MG TABLET PO PRN (11:53)
[2022-07-04] MEDS ORDERED: Naloxone 0.4 MG/ML INJ IVP PRN (11:53)
[2022-07-04] MEDS ORDERED: Ondansetron ODT 4 MG TAB.RAPDIS SL PRN (11:53)
[2022-07-04] MEDS ORDERED: D5% in Water 1,000 ML IVC PRN (11:53)
[2022-07-04] MEDS ORDERED: Beer can PO SCH (12:00)
[2022-07-04] MEDS: Vancomycin 1,250 MG/262.5 ML IV.SOLN IVPB SCH (12:42)
[2022-07-04] MEDS: *HR* Glimepiride 4 MG TABLET PO SCH ×2 (15:31→21:07)
[2022-07-04] MEDS: carvediloL 25 MG TABLET PO SCH (16:49)
[2022-07-04] MEDS ORDERED: carvediloL 25 MG TABLET PO SCH (17:00)
[2022-07-04] MEDS: rOPINIRole 1 MG TABLET PO SCH (21:07)
[2022-07-05] MEDS: hydrALAZINE 25 MG TABLET PO SCH ×3 (01:10→17:12)
[2022-07-05 04:14] LABS: Hematocrit 25.9 % (37.5-50.1); Hemoglobin 8.2 g/dL (12.9-16.9); Mean Corpuscular HGB Conc 31.7 g/dL (31.6-35.5); Mean Corpuscular Hemoglobin 28.6 pg (28.0-33.3); Mean Corpuscular Volume 90.2 fL (83.0-100.0); Mean Platelet Volume 9.8 fL (9.4-12.4); Platelet Count 234 K/mcL (140-400); Red Blood Count 2.87 M/mcL (4.19-5.50); Red Cell Distribution Width 13.5 % (11.5-14.5); White Blood Count 7.5 K/mcL (4.3-11.1)
[2022-07-05 04:34] LABS: Calcium 8.2 mg/dL (8.6-10.3); Potassium 3.2 mEq/L (3.5-5.1)
[2022-07-05] MEDS: *HR* Enoxaparin 40 MG/0.4 ML SYRINGE SQ SCH (04:48)
[2022-07-05] MEDS: *HR* Glimepiride 4 MG TABLET PO SCH ×2 (08:33→20:27)
[2022-07-05] MEDS: ALPRAZolam 1 MG TABLET PO SCH ×3 (08:33→20:27)
[2022-07-05] MEDS: Folic Acid 1 MG TABLET PO SCH (08:34)
[2022-07-05] MEDS: Aspirin Enteric Coated 81 MG Tablet PO SCH (08:34)
[2022-07-05] MEDS: QUEtiapine Fumarate 25 MG TABLET PO SCH ×2 (08:34→20:26)
[2022-07-05] MEDS: Thiamine (B-1) 100 MG TABLET PO SCH (08:34)
[2022-07-05] MEDS: Loratadine 10 MG TABLET PO SCH (08:35)
[2022-07-05] MEDS: lisinopriL 10 MG TABLET PO SCH (08:35)
[2022-07-05] MEDS: Nicotine 21 MG PATCH.TD24 TD SCH (08:35)
[2022-07-05] MEDS: carvediloL 25 MG TABLET PO SCH ×2 (08:35→17:12)
[2022-07-05] MEDS: Bumetanide 1 MG/4 ML VIAL IVP SCH ×2 (08:45→16:30)
[2022-07-05] MEDS: Ertapenem 1,000 MG in 0.9 % Sodium Chloride Mini Bag 100 ML IVPB SCH (08:46)
[2022-07-05] MEDS ORDERED: lisinopriL 10 MG TABLET PO SCH (09:00)
[2022-07-05] MEDS: Insulin LISPRO 300 UNITS/3 ML VIAL SUBQ SCH ×5 (09:37→20:38)
[2022-07-05] MEDS: polyethylene glycoL 3350 17 GM POWD.PACK PO SCH (09:38)
[2022-07-05] MEDS ORDERED: lisinopriL 5 MG TABLET PO ONE (09:40)
[2022-07-05] MEDS: Vancomycin 1,250 MG/262.5 ML IV.SOLN IVPB SCH (11:34)
[2022-07-05] MEDS: 0.9 % Sodium Chloride 1,000 ML IVC SCH (15:12)
[2022-07-05] MEDS: Melatonin 3 MG TABLET PO PRN (20:27)
[2022-07-05] MEDS: rOPINIRole 1 MG TABLET PO SCH (20:27)
[2022-07-05] MEDS: FLUoxetine 20 MG CAPSULE PO SCH (20:27)
[2022-07-06] MEDS: hydrALAZINE 25 MG TABLET PO SCH ×3 (00:34→15:43)
[2022-07-06] MEDS: *HR* Enoxaparin 40 MG/0.4 ML SYRINGE SQ SCH (04:54)
[2022-07-06] MEDS: 0.9 % Sodium Chloride 1,000 ML IVC SCH (04:57)
[2022-07-06] MEDS: Loratadine 10 MG TABLET PO SCH (07:53)
[2022-07-06] MEDS: FLUoxetine 20 MG CAPSULE PO SCH ×2 (07:53→19:32)
[2022-07-06] MEDS: Thiamine (B-1) 100 MG TABLET PO SCH (07:53)
[2022-07-06] MEDS: carvediloL 25 MG TABLET PO SCH ×2 (07:53→17:02)
[2022-07-06] MEDS: *HR* Glimepiride 4 MG TABLET PO SCH ×2 (07:53→19:32)
[2022-07-06] MEDS: lisinopriL 10 MG TABLET PO SCH (07:54)
[2022-07-06] MEDS: Aspirin Enteric Coated 81 MG Tablet PO SCH (07:54)
[2022-07-06] MEDS: QUEtiapine Fumarate 25 MG TABLET PO SCH ×2 (07:54→19:32)
[2022-07-06] MEDS: Folic Acid 1 MG TABLET PO SCH (07:55)
[2022-07-06] MEDS: Ertapenem 1,000 MG in 0.9 % Sodium Chloride Mini Bag 100 ML IVPB SCH (07:55)
[2022-07-06] MEDS: Bumetanide 1 MG/4 ML VIAL IVP SCH (07:55)
[2022-07-06] MEDS: Nicotine 21 MG PATCH.TD24 TD SCH (08:04)
[2022-07-06 08:37] LABS: Hematocrit 28.3 % (37.5-50.1); Mean Corpuscular HGB Conc 31.8 g/dL (31.6-35.5); Mean Corpuscular Volume 91.3 fL (83.0-100.0); Mean Platelet Volume 9.2 fL (9.4-12.4); Platelet Count 297 K/mcL (140-400); Red Cell Distribution Width 13.3 % (11.5-14.5); White Blood Count 7.4 K/mcL (4.3-11.1)
[2022-07-06 08:45] LABS: Calcium 8.4 mg/dL (8.6-10.3); Potassium 3.5 mEq/L (3.5-5.1)
[2022-07-06] MEDS ORDERED: D5% in Water 1,000 ML IVC PRN (08:59)
[2022-07-06] MEDS: polyethylene glycoL 3350 17 GM POWD.PACK PO SCH (09:15)
[2022-07-06] MEDS: Insulin LISPRO 300 UNITS/3 ML VIAL SUBQ SCH ×4 (09:16→19:36)
[2022-07-06] MEDS: ALPRAZolam 1 MG TABLET PO SCH ×3 (09:16→19:31)
[2022-07-06] MEDS: Vancomycin 1,250 MG/262.5 ML IV.SOLN IVPB SCH (12:05)
[2022-07-06] MEDS ORDERED: *HR* FentaNYL (PF) 100 MCG/2 ML VIAL IVP ONE (12:11)
[2022-07-06] MEDS ORDERED: *HR* Midazolam HCl 2 MG/2 ML VIAL IVP ONE (12:12)
[2022-07-06] MEDS ORDERED: *HR* FentaNYL (PF) 100 MCG/2 ML VIAL ONE (12:15)
[2022-07-06] MEDS ORDERED: *HR* Midazolam HCl 5 MG/5 ML VIAL IVP ONE (12:16)
[2022-07-06] MEDS: D5% in Water 1,000 ML IVC SCH (12:23)
[2022-07-06] MEDS ORDERED: Acetylcysteine 10% 2 ML INHSOL IH SCH (12:45)
[2022-07-06] MEDS: rOPINIRole 1 MG TABLET PO SCH (19:31)
[2022-07-06] MEDS: Melatonin 3 MG TABLET PO PRN (19:32)
[2022-07-06] MEDS: Piperacillin/Tazobactam 3.375 GM in 0.9 % Sodium Chloride Mini Bag 100 ML IVPB SCH ×2 (19:34→19:35)
[2022-07-06] MEDS ORDERED: *HR* Alteplase (Cathflo) 2 MG VIAL IVP ONE (20:56)
[2022-07-07] MEDS: D5% in Water 1,000 ML IVC SCH ×2 (00:15→02:42)
[2022-07-07] MEDS: hydrALAZINE 25 MG TABLET PO SCH ×3 (00:16→17:02)
[2022-07-07] MEDS: *HR* Enoxaparin 40 MG/0.4 ML SYRINGE SQ SCH (06:42)
[2022-07-07 06:55] LABS: Hematocrit 25.4 % (37.5-50.1); Hemoglobin 7.9 g/dL (12.9-16.9); Mean Corpuscular HGB Conc 31.1 g/dL (31.6-35.5); Mean Corpuscular Hemoglobin 28.8 pg (28.0-33.3); Mean Corpuscular Volume 92.7 fL (83.0-100.0); Mean Platelet Volume 9.4 fL (9.4-12.4); Platelet Count 307 K/mcL (140-400); Red Blood Count 2.74 M/mcL (4.19-5.50); Red Cell Distribution Width 13.3 % (11.5-14.5); White Blood Count 7.1 K/mcL (4.3-11.1)
[2022-07-07 07:15] LABS: Calcium 8.2 mg/dL (8.6-10.3); Potassium 3.7 mEq/L (3.5-5.1)
[2022-07-07] MEDS: carvediloL 25 MG TABLET PO SCH ×2 (07:58→17:03)
[2022-07-07] MEDS: Insulin LISPRO 300 UNITS/3 ML VIAL SUBQ SCH ×4 (07:58→20:17)
[2022-07-07] MEDS: polyethylene glycoL 3350 17 GM POWD.PACK PO SCH (07:59)
[2022-07-07] MEDS: Ertapenem 1,000 MG in 0.9 % Sodium Chloride Mini Bag 100 ML IVPB SCH (08:30)
[2022-07-07] MEDS: Bumetanide 1 MG/4 ML VIAL IVP SCH (08:35)
[2022-07-07] MEDS: Nicotine 21 MG PATCH.TD24 TD SCH (08:36)
[2022-07-07] MEDS: *HR* Heparin 5,000 UNIT/ML VIAL SQ SCH ×3 (09:34→22:12)
[2022-07-07] MEDS: Loratadine 10 MG TABLET PO SCH (11:45)
[2022-07-07] MEDS: Thiamine (B-1) 100 MG TABLET PO SCH (11:45)
[2022-07-07] MEDS: Aspirin Enteric Coated 81 MG Tablet PO SCH (11:45)
[2022-07-07] MEDS: ALPRAZolam 1 MG TABLET PO SCH ×3 (11:45→20:15)
[2022-07-07] MEDS: Folic Acid 1 MG TABLET PO SCH (11:45)
[2022-07-07] MEDS: QUEtiapine Fumarate 25 MG TABLET PO SCH ×2 (11:45→20:16)
[2022-07-07] MEDS: FLUoxetine 20 MG CAPSULE PO SCH ×2 (11:45→20:15)
[2022-07-07] MEDS: rOPINIRole 1 MG TABLET PO SCH (20:15)
[2022-07-08] MEDS: hydrALAZINE 25 MG TABLET PO SCH ×3 (01:35→17:32)
[2022-07-08 05:03] LABS: Hematocrit 26.8 % (37.5-50.1); Hemoglobin 8.3 g/dL (12.9-16.9); Mean Corpuscular Hemoglobin 28.5 pg (28.0-33.3); Mean Corpuscular Volume 92.1 fL (83.0-100.0); Mean Platelet Volume 9.5 fL (9.4-12.4); Platelet Count 384 K/mcL (140-400); Red Blood Count 2.91 M/mcL (4.19-5.50); Red Cell Distribution Width 13.2 % (11.5-14.5); White Blood Count 7.8 K/mcL (4.3-11.1)
[2022-07-08 05:14] LABS: Calcium 7.9 mg/dL (8.6-10.3); Potassium 3.1 mEq/L (3.5-5.1)
[2022-07-08] MEDS: D5% in Water 1,000 ML IVC SCH (05:32)
[2022-07-08] MEDS: *HR* Heparin 5,000 UNIT/ML VIAL SQ SCH ×3 (05:32→20:25)
[2022-07-08] MEDS: Nicotine 21 MG PATCH.TD24 TD SCH (09:45)
[2022-07-08] MEDS: carvediloL 25 MG TABLET PO SCH ×2 (09:45→17:33)
[2022-07-08] MEDS: Insulin LISPRO 300 UNITS/3 ML VIAL SUBQ SCH ×4 (09:45→20:26)
[2022-07-08] MEDS: Bumetanide 1 MG/4 ML VIAL IVP SCH (09:46)
[2022-07-08] MEDS: QUEtiapine Fumarate 25 MG TABLET PO SCH ×2 (09:46→20:25)
[2022-07-08] MEDS: Thiamine (B-1) 100 MG TABLET PO SCH (09:47)
[2022-07-08] MEDS: FLUoxetine 20 MG CAPSULE PO SCH ×2 (09:47→20:25)
[2022-07-08] MEDS: Loratadine 10 MG TABLET PO SCH (09:47)
[2022-07-08] MEDS: ALPRAZolam 1 MG TABLET PO SCH ×3 (09:47→20:31)
[2022-07-08] MEDS: Folic Acid 1 MG TABLET PO SCH (09:47)
[2022-07-08] MEDS: Aspirin Enteric Coated 81 MG Tablet PO SCH (09:47)
[2022-07-08] MEDS: polyethylene glycoL 3350 17 GM POWD.PACK PO SCH (09:47)
[2022-07-08] MEDS ORDERED: Piperacillin/Tazobactam 3.375 GM in 0.9 % Sodium Chloride Mini Bag 100 ML IVPB SCH (10:00)
[2022-07-08] MEDS: D5% in 0.9% NACL 1,000 ML IVC SCH ×2 (10:54→17:45)
[2022-07-08] MEDS: Piperacillin/Tazobactam 3.375 GM in 0.9 % Sodium Chloride Mini Bag 100 ML IVPB SCH ×2 (17:29→20:24)
[2022-07-08] MEDS: rOPINIRole 1 MG TABLET PO SCH (20:25)
[2022-07-09] MEDS: hydrALAZINE 25 MG TABLET PO SCH ×2 (00:23→15:14)
[2022-07-09] MEDS: D5% in 0.9% NACL 1,000 ML IVC SCH ×3 (01:49→18:29)
[2022-07-09] MEDS: Piperacillin/Tazobactam 3.375 GM in 0.9 % Sodium Chloride Mini Bag 100 ML IVPB SCH ×3 (01:50→21:01)
[2022-07-09] MEDS: *HR* Heparin 5,000 UNIT/ML VIAL SQ SCH ×3 (06:48→21:01)
[2022-07-09] MEDS: Insulin LISPRO 300 UNITS/3 ML VIAL SUBQ SCH ×4 (06:49→21:03)
[2022-07-09] MEDS: polyethylene glycoL 3350 17 GM POWD.PACK PO SCH (07:43)
[2022-07-09] MEDS ORDERED: hydrALAZINE 25 MG TABLET PO PRN (09:26)
[2022-07-09 09:28] LABS: Hematocrit 26.8 % (37.5-50.1); Hemoglobin 8.5 g/dL (12.9-16.9); Mean Corpuscular HGB Conc 31.7 g/dL (31.6-35.5); Mean Corpuscular Hemoglobin 28.7 pg (28.0-33.3); Mean Corpuscular Volume 90.5 fL (83.0-100.0); Mean Platelet Volume 9.1 fL (9.4-12.4); Platelet Count 422 K/mcL (140-400); Red Blood Count 2.96 M/mcL (4.19-5.50); Red Cell Distribution Width 13.1 % (11.5-14.5); White Blood Count 8.1 K/mcL (4.3-11.1)
[2022-07-09 09:42] LABS: Potassium 3.6 mEq/L (3.5-5.1)
[2022-07-09] MEDS: Thiamine (B-1) 100 MG TABLET PO SCH (09:52)
[2022-07-09] MEDS: Aspirin Enteric Coated 81 MG Tablet PO SCH (09:52)
[2022-07-09] MEDS: ALPRAZolam 1 MG TABLET PO SCH ×3 (09:52→21:02)
[2022-07-09] MEDS: Loratadine 10 MG TABLET PO SCH (09:53)
[2022-07-09] MEDS: Folic Acid 1 MG TABLET PO SCH (09:53)
[2022-07-09] MEDS: Nicotine 21 MG PATCH.TD24 TD SCH (09:53)
[2022-07-09] MEDS: FLUoxetine 20 MG CAPSULE PO SCH ×2 (09:53→21:02)
[2022-07-09] MEDS: carvediloL 25 MG TABLET PO SCH ×2 (09:53→17:38)
[2022-07-09] MEDS: QUEtiapine Fumarate 25 MG TABLET PO SCH ×2 (09:53→21:02)
[2022-07-09] MEDS: Ertapenem 1,000 MG in 0.9 % Sodium Chloride Mini Bag 100 ML IVPB SCH (19:47)
[2022-07-09] MEDS: Melatonin 3 MG TABLET PO PRN (21:02)
[2022-07-09] MEDS: rOPINIRole 1 MG TABLET PO SCH (21:02)
[2022-07-10] MEDS: D5% in 0.9% NACL 1,000 ML IVC SCH ×2 (01:51→09:44)
[2022-07-10] MEDS: Piperacillin/Tazobactam 3.375 GM in 0.9 % Sodium Chloride Mini Bag 100 ML IVPB SCH ×3 (04:47→19:37)
[2022-07-10] MEDS: *HR* Heparin 5,000 UNIT/ML VIAL SQ SCH ×3 (04:48→23:15)
[2022-07-10 05:58] LABS: Hematocrit 24.6 % (37.5-50.1); Hemoglobin 7.8 g/dL (12.9-16.9); Mean Corpuscular HGB Conc 31.7 g/dL (31.6-35.5); Mean Corpuscular Hemoglobin 28.9 pg (28.0-33.3); Mean Corpuscular Volume 91.1 fL (83.0-100.0); Mean Platelet Volume 9.2 fL (9.4-12.4); Platelet Count 402 K/mcL (140-400); Red Cell Distribution Width 13.3 % (11.5-14.5); White Blood Count 8.4 K/mcL (4.3-11.1)
[2022-07-10 06:16] LABS: Calcium 7.7 mg/dL (8.6-10.3); Potassium 3.4 mEq/L (3.5-5.1)
[2022-07-10] MEDS: carvediloL 25 MG TABLET PO SCH ×2 (07:43→16:28)
[2022-07-10] MEDS: Insulin LISPRO 300 UNITS/3 ML VIAL SUBQ SCH ×2 (07:43→16:28)
[2022-07-10] MEDS: Folic Acid 1 MG TABLET PO SCH (07:49)
[2022-07-10] MEDS: Loratadine 10 MG TABLET PO SCH (07:49)
[2022-07-10] MEDS: FLUoxetine 20 MG CAPSULE PO SCH ×2 (07:49→19:36)
[2022-07-10] MEDS: Thiamine (B-1) 100 MG TABLET PO SCH (07:49)
[2022-07-10] MEDS: ALPRAZolam 1 MG TABLET PO SCH ×3 (07:49→19:37)
[2022-07-10] MEDS: Aspirin Enteric Coated 81 MG Tablet PO SCH (07:49)
[2022-07-10] MEDS: polyethylene glycoL 3350 17 GM POWD.PACK PO SCH (07:49)
[2022-07-10] MEDS: QUEtiapine Fumarate 25 MG TABLET PO SCH ×2 (07:49→19:36)
[2022-07-10] MEDS: Nicotine 21 MG PATCH.TD24 TD SCH (07:49)
[2022-07-10] MEDS ORDERED: D5% in Water 1,000 ML IVC PRN ×2 (11:12→15:31)
[2022-07-10] MEDS ORDERED: D5% in 0.9% NACL 1,000 ML IVC SCH ×2 (11:30→15:31)
[2022-07-10] MEDS ORDERED: Insulin LISPRO 300 UNITS/3 ML VIAL SUBQ SCH (12:00)
[2022-07-10] MEDS ORDERED: Naloxone 0.4 MG/ML INJ IVP PRN (15:31)
[2022-07-10] MEDS ORDERED: Potassium Chloride 40 MEQ/200 ML BAG IVPB PRN (15:31)
[2022-07-10] MEDS ORDERED: *HR* Dextrose 50 % in Water (Syg) 50 ML SYRINGE IVP PRN (15:31)
[2022-07-10] MEDS ORDERED: Ondansetron ODT 4 MG TAB.RAPDIS SL PRN (15:31)
[2022-07-10] MEDS ORDERED: Acetaminophen 325 MG TABLET PO PRN (15:31)
[2022-07-10] MEDS ORDERED: Dextrose Gel 15 GM/37.5 ML TUBE PO PRN ×2 (15:31)
[2022-07-10] MEDS: Melatonin 3 MG TABLET PO PRN (19:36)
[2022-07-10] MEDS: rOPINIRole 1 MG TABLET PO SCH (19:36)
[2022-07-10] MEDS: Mirtazapine 15 MG TABLET PO SCH (19:37)
[2022-07-10] MEDS ORDERED: Mirtazapine 15 MG TABLET PO SCH (21:00)
[2022-07-11] MEDS: Insulin LISPRO 300 UNITS/3 ML VIAL SUBQ SCH ×4 (00:40→17:42)
[2022-07-11] MEDS: Piperacillin/Tazobactam 3.375 GM in 0.9 % Sodium Chloride Mini Bag 100 ML IVPB SCH ×3 (04:37→21:29)
[2022-07-11] MEDS: *HR* Heparin 5,000 UNIT/ML VIAL SQ SCH ×3 (04:38→21:29)
[2022-07-11 05:03] LABS: Hematocrit 26.1 % (37.5-50.1); Hemoglobin 8.2 g/dL (12.9-16.9); Mean Corpuscular HGB Conc 31.4 g/dL (31.6-35.5); Mean Corpuscular Volume 92.2 fL (83.0-100.0); Platelet Count 430 K/mcL (140-400); Red Blood Count 2.83 M/mcL (4.19-5.50); Red Cell Distribution Width 13.3 % (11.5-14.5); White Blood Count 9.7 K/mcL (4.3-11.1)
[2022-07-11 05:24] LABS: Calcium 8.2 mg/dL (8.6-10.3); Potassium 3.5 mEq/L (3.5-5.1)
[2022-07-11] MEDS: Nicotine 21 MG PATCH.TD24 TD SCH (08:32)
[2022-07-11] MEDS: QUEtiapine Fumarate 25 MG TABLET PO SCH ×2 (08:33→21:29)
[2022-07-11] MEDS: Folic Acid 1 MG TABLET PO SCH (08:33)
[2022-07-11] MEDS: FLUoxetine 20 MG CAPSULE PO SCH ×2 (08:33→21:29)
[2022-07-11] MEDS: ALPRAZolam 1 MG TABLET PO SCH ×3 (08:33→21:29)
[2022-07-11] MEDS: Aspirin Enteric Coated 81 MG Tablet PO SCH (08:33)
[2022-07-11] MEDS: Thiamine (B-1) 100 MG TABLET PO SCH (08:33)
[2022-07-11] MEDS: polyethylene glycoL 3350 17 GM POWD.PACK PO SCH (08:34)
[2022-07-11] MEDS: Loratadine 10 MG TABLET PO SCH (08:34)
[2022-07-11] MEDS: carvediloL 25 MG TABLET PO SCH ×2 (08:34→17:41)
[2022-07-11] MEDS: Mirtazapine 15 MG TABLET PO SCH (21:28)
[2022-07-11] MEDS: rOPINIRole 1 MG TABLET PO SCH (21:29)
[2022-07-12] MEDS: Insulin LISPRO 300 UNITS/3 ML VIAL SUBQ SCH ×4 (01:54→18:15)
[2022-07-12] MEDS: Piperacillin/Tazobactam 3.375 GM in 0.9 % Sodium Chloride Mini Bag 100 ML IVPB SCH ×3 (03:13→21:08)
[2022-07-12 03:43] LABS: Hematocrit 24.8 % (37.5-50.1); Hemoglobin 7.8 g/dL (12.9-16.9); Mean Corpuscular HGB Conc 31.5 g/dL (31.6-35.5); Mean Corpuscular Hemoglobin 28.7 pg (28.0-33.3); Mean Corpuscular Volume 91.2 fL (83.0-100.0); Mean Platelet Volume 9.1 fL (9.4-12.4); Platelet Count 440 K/mcL (140-400); Red Blood Count 2.72 M/mcL (4.19-5.50); Red Cell Distribution Width 13.4 % (11.5-14.5); White Blood Count 9.8 K/mcL (4.3-11.1)
[2022-07-12 04:01] LABS: Potassium 3.3 mEq/L (3.5-5.1)
[2022-07-12 04:41] LABS: Albumin 2.8 g/dL (3.5-5.7)
[2022-07-12] MEDS: *HR* Heparin 5,000 UNIT/ML VIAL SQ SCH ×3 (05:02→21:21)
[2022-07-12] MEDS: Thiamine (B-1) 100 MG TABLET PO SCH (09:00)
[2022-07-12] MEDS: carvediloL 25 MG TABLET PO SCH ×2 (09:00→18:19)
[2022-07-12] MEDS: FLUoxetine 20 MG CAPSULE PO SCH ×2 (09:00→21:09)
[2022-07-12] MEDS: ALPRAZolam 1 MG TABLET PO SCH ×3 (09:00→21:09)
[2022-07-12] MEDS: Aspirin Enteric Coated 81 MG Tablet PO SCH (09:01)
[2022-07-12] MEDS: Folic Acid 1 MG TABLET PO SCH (09:01)
[2022-07-12] MEDS: Loratadine 10 MG TABLET PO SCH (09:01)
[2022-07-12] MEDS: QUEtiapine Fumarate 25 MG TABLET PO SCH ×2 (09:01→21:09)
[2022-07-12] MEDS: Nicotine 21 MG PATCH.TD24 TD SCH (09:01)
[2022-07-12] MEDS: polyethylene glycoL 3350 17 GM POWD.PACK PO SCH (09:02)
[2022-07-12] MEDS: Mirtazapine 15 MG TABLET PO SCH (21:09)
[2022-07-12] MEDS: rOPINIRole 1 MG TABLET PO SCH (21:09)
[2022-07-12] MEDS: Melatonin 3 MG TABLET PO PRN (21:11)
[2022-07-13] MEDS: Insulin LISPRO 300 UNITS/3 ML VIAL SUBQ SCH ×4 (00:10→17:24)
[2022-07-13] MEDS: Piperacillin/Tazobactam 3.375 GM in 0.9 % Sodium Chloride Mini Bag 100 ML IVPB SCH ×3 (03:53→20:22)
[2022-07-13 04:33] LABS: Hematocrit 24.6 % (37.5-50.1); Hemoglobin 7.4 g/dL (12.9-16.9); Mean Corpuscular HGB Conc 30.1 g/dL (31.6-35.5); Mean Corpuscular Hemoglobin 27.5 pg (28.0-33.3); Mean Corpuscular Volume 91.4 fL (83.0-100.0); Mean Platelet Volume 9.2 fL (9.4-12.4); Platelet Count 409 K/mcL (140-400); Red Blood Count 2.69 M/mcL (4.19-5.50); Red Cell Distribution Width 13.6 % (11.5-14.5); White Blood Count 11.3 K/mcL (4.3-11.1)
[2022-07-13 04:52] LABS: Calcium 8.1 mg/dL (8.6-10.3); Potassium 3.2 mEq/L (3.5-5.1)
[2022-07-13] MEDS: carvediloL 25 MG TABLET PO SCH ×2 (08:25→17:24)
[2022-07-13] MEDS: *HR* Heparin 5,000 UNIT/ML VIAL SQ SCH ×3 (08:25→20:23)
[2022-07-13] MEDS: FLUoxetine 20 MG CAPSULE PO SCH ×2 (08:25→20:24)
[2022-07-13] MEDS: polyethylene glycoL 3350 17 GM POWD.PACK PO SCH (08:26)
[2022-07-13] MEDS: QUEtiapine Fumarate 25 MG TABLET PO SCH ×2 (08:26→20:24)
[2022-07-13] MEDS: Loratadine 10 MG TABLET PO SCH (08:26)
[2022-07-13] MEDS: ALPRAZolam 1 MG TABLET PO SCH ×3 (08:26→20:24)
[2022-07-13] MEDS: Folic Acid 1 MG TABLET PO SCH (08:26)
[2022-07-13] MEDS: Thiamine (B-1) 100 MG TABLET PO SCH (08:26)
[2022-07-13] MEDS: Aspirin Enteric Coated 81 MG Tablet PO SCH (08:26)
[2022-07-13] MEDS: Nicotine 21 MG PATCH.TD24 TD SCH (08:27)
[2022-07-13 09:50] LABS: Magnesium 1.8 mg/dL (1.6-2.6)
[2022-07-13] MEDS: rOPINIRole 1 MG TABLET PO SCH (20:23)
[2022-07-13] MEDS: Mirtazapine 15 MG TABLET PO SCH (20:24)
[2022-07-13] MEDS: amLODIPine 5 MG TABLET PO SCH (22:16)
[2022-07-14] MEDS: Insulin LISPRO 300 UNITS/3 ML VIAL SUBQ SCH ×4 (00:01→18:08)
[2022-07-14] MEDS ORDERED: 0.9 % Sodium Chloride 250 ML ONE (00:41)
[2022-07-14] MEDS: Piperacillin/Tazobactam 3.375 GM in 0.9 % Sodium Chloride Mini Bag 100 ML IVPB SCH ×3 (04:36→20:32)
[2022-07-14] MEDS: *HR* Heparin 5,000 UNIT/ML VIAL SQ SCH ×3 (04:37→20:33)
[2022-07-14 06:11] LABS: Hematocrit 27.6 % (37.5-50.1); Hemoglobin 8.5 g/dL (12.9-16.9); Mean Corpuscular HGB Conc 30.8 g/dL (31.6-35.5); Mean Corpuscular Volume 90.8 fL (83.0-100.0); Platelet Count 399 K/mcL (140-400); Red Blood Count 3.04 M/mcL (4.19-5.50); Red Cell Distribution Width 13.8 % (11.5-14.5); White Blood Count 12.5 K/mcL (4.3-11.1)
[2022-07-14 06:32] LABS: Calcium 8.2 mg/dL (8.6-10.3); Potassium 3.2 mEq/L (3.5-5.1)
[2022-07-14] MEDS: polyethylene glycoL 3350 17 GM POWD.PACK PO SCH (07:37)
[2022-07-14] MEDS: ALPRAZolam 1 MG TABLET PO SCH ×3 (10:28→20:33)
[2022-07-14] MEDS: QUEtiapine Fumarate 25 MG TABLET PO SCH ×2 (10:28→20:33)
[2022-07-14] MEDS: FLUoxetine 20 MG CAPSULE PO SCH ×2 (11:09→20:33)
[2022-07-14] MEDS: amLODIPine 5 MG TABLET PO SCH (11:09)
[2022-07-14] MEDS: carvediloL 25 MG TABLET PO SCH ×2 (11:09→16:06)
[2022-07-14] MEDS: Folic Acid 1 MG TABLET PO SCH (11:09)
[2022-07-14] MEDS: Loratadine 10 MG TABLET PO SCH (11:09)
[2022-07-14] MEDS: Nicotine 21 MG PATCH.TD24 TD SCH (11:10)
[2022-07-14] MEDS: Aspirin Enteric Coated 81 MG Tablet PO SCH (11:10)
[2022-07-14] MEDS: Thiamine (B-1) 100 MG TABLET PO SCH (11:10)
[2022-07-14] MEDS: hydrALAZINE 25 MG TABLET PO PRN (16:06)
[2022-07-14] MEDS: Mirtazapine 15 MG TABLET PO SCH (20:33)
[2022-07-14] MEDS: rOPINIRole 1 MG TABLET PO SCH (20:33)
[2022-07-15] MEDS: Insulin LISPRO 300 UNITS/3 ML VIAL SUBQ SCH ×4 (01:28→17:41)
[2022-07-15] MEDS: Piperacillin/Tazobactam 3.375 GM in 0.9 % Sodium Chloride Mini Bag 100 ML IVPB SCH ×3 (04:21→20:02)
[2022-07-15 04:50] LABS: Hematocrit 26.9 % (37.5-50.1); Hemoglobin 8.5 g/dL (12.9-16.9); Mean Corpuscular HGB Conc 31.6 g/dL (31.6-35.5); Mean Corpuscular Hemoglobin 28.7 pg (28.0-33.3); Mean Corpuscular Volume 90.9 fL (83.0-100.0); Platelet Count 404 K/mcL (140-400); Red Blood Count 2.96 M/mcL (4.19-5.50); Red Cell Distribution Width 13.9 % (11.5-14.5); White Blood Count 15.7 K/mcL (4.3-11.1)
[2022-07-15 05:08] LABS: Calcium 8.1 mg/dL (8.6-10.3); Potassium 3.4 mEq/L (3.5-5.1)
[2022-07-15] MEDS: *HR* Heparin 5,000 UNIT/ML VIAL SQ SCH ×3 (05:34→23:59)
[2022-07-15] MEDS: Aspirin Enteric Coated 81 MG Tablet PO SCH (08:16)
[2022-07-15] MEDS: Folic Acid 1 MG TABLET PO SCH (08:16)
[2022-07-15] MEDS: amLODIPine 5 MG TABLET PO SCH (08:16)
[2022-07-15] MEDS: polyethylene glycoL 3350 17 GM POWD.PACK PO SCH (08:16)
[2022-07-15] MEDS: QUEtiapine Fumarate 25 MG TABLET PO SCH ×2 (08:16→20:02)
[2022-07-15] MEDS: FLUoxetine 20 MG CAPSULE PO SCH ×2 (08:16→20:02)
[2022-07-15] MEDS: Thiamine (B-1) 100 MG TABLET PO SCH (08:16)
[2022-07-15] MEDS: carvediloL 25 MG TABLET PO SCH ×2 (08:16→17:42)
[2022-07-15] MEDS: Loratadine 10 MG TABLET PO SCH (08:16)
[2022-07-15] MEDS: ALPRAZolam 1 MG TABLET PO SCH ×3 (08:17→20:01)
[2022-07-15] MEDS: Nicotine 21 MG PATCH.TD24 TD SCH (08:17)
[2022-07-15] MEDS: rOPINIRole 1 MG TABLET PO SCH (20:02)
[2022-07-15] MEDS: Mirtazapine 15 MG TABLET PO SCH (20:02)
[2022-07-16] MEDS: Insulin LISPRO 300 UNITS/3 ML VIAL SUBQ SCH ×5 (00:39→23:24)
[2022-07-16] MEDS: Piperacillin/Tazobactam 3.375 GM in 0.9 % Sodium Chloride Mini Bag 100 ML IVPB SCH ×3 (04:21→19:49)
[2022-07-16 04:56] LABS: Hematocrit 28.4 % (37.5-50.1); Hemoglobin 8.9 g/dL (12.9-16.9); Mean Corpuscular HGB Conc 31.3 g/dL (31.6-35.5); Mean Corpuscular Hemoglobin 28.3 pg (28.0-33.3); Mean Corpuscular Volume 90.2 fL (83.0-100.0); Mean Platelet Volume 9.3 fL (9.4-12.4); Platelet Count 435 K/mcL (140-400); Red Blood Count 3.15 M/mcL (4.19-5.50); White Blood Count 16.7 K/mcL (4.3-11.1)
[2022-07-16 05:15] LABS: Calcium 8.5 mg/dL (8.6-10.3); Potassium 3.1 mEq/L (3.5-5.1)
[2022-07-16] MEDS: *HR* Heparin 5,000 UNIT/ML VIAL SQ SCH ×3 (06:35→19:53)
[2022-07-16] MEDS: carvediloL 25 MG TABLET PO SCH ×2 (09:00→16:42)
[2022-07-16] MEDS: ALPRAZolam 1 MG TABLET PO SCH ×3 (09:52→19:50)
[2022-07-16] MEDS: Nicotine 21 MG PATCH.TD24 TD SCH (09:52)
[2022-07-16] MEDS: Folic Acid 1 MG TABLET PO SCH (09:55)
[2022-07-16] MEDS: FLUoxetine 20 MG CAPSULE PO SCH ×2 (09:55→19:50)
[2022-07-16] MEDS: amLODIPine 5 MG TABLET PO SCH (09:55)
[2022-07-16] MEDS: Thiamine (B-1) 100 MG TABLET PO SCH (09:55)
[2022-07-16] MEDS: QUEtiapine Fumarate 25 MG TABLET PO SCH ×2 (09:55→19:50)
[2022-07-16] MEDS: Loratadine 10 MG TABLET PO SCH (09:55)
[2022-07-16] MEDS: Aspirin Enteric Coated 81 MG Tablet PO SCH (09:56)
[2022-07-16] MEDS: polyethylene glycoL 3350 17 GM POWD.PACK PO SCH (09:56)
[2022-07-16] MEDS: Mirtazapine 15 MG TABLET PO SCH (19:50)
[2022-07-16] MEDS: rOPINIRole 1 MG TABLET PO SCH (19:50)
[2022-07-16] MEDS: hydrALAZINE 25 MG TABLET PO PRN (21:04)
[2022-07-17] MEDS: Piperacillin/Tazobactam 3.375 GM in 0.9 % Sodium Chloride Mini Bag 100 ML IVPB SCH ×4 (03:58→23:40)
[2022-07-17] MEDS: *HR* Heparin 5,000 UNIT/ML VIAL SQ SCH ×3 (06:08→21:05)
[2022-07-17] MEDS: FLUoxetine 20 MG CAPSULE PO SCH ×2 (07:22→21:05)
[2022-07-17] MEDS: Thiamine (B-1) 100 MG TABLET PO SCH (07:22)
[2022-07-17] MEDS: Nicotine 21 MG PATCH.TD24 TD SCH (07:22)
[2022-07-17] MEDS: Aspirin Enteric Coated 81 MG Tablet PO SCH (07:22)
[2022-07-17] MEDS: amLODIPine 5 MG TABLET PO SCH (07:22)
[2022-07-17] MEDS: ALPRAZolam 1 MG TABLET PO SCH ×3 (07:22→21:05)
[2022-07-17] MEDS: QUEtiapine Fumarate 25 MG TABLET PO SCH ×2 (07:22→21:05)
[2022-07-17] MEDS: carvediloL 25 MG TABLET PO SCH ×2 (07:23→17:03)
[2022-07-17] MEDS: Loratadine 10 MG TABLET PO SCH (07:23)
[2022-07-17] MEDS: polyethylene glycoL 3350 17 GM POWD.PACK PO SCH (07:23)
[2022-07-17] MEDS: Folic Acid 1 MG TABLET PO SCH (07:23)
[2022-07-17] MEDS: Insulin LISPRO 300 UNITS/3 ML VIAL SUBQ SCH ×4 (07:23→21:05)
[2022-07-17] MEDS ORDERED: *HR* Propofol 200 MG/20 ML VIAL IVP ONE (09:32)
[2022-07-17] MEDS ORDERED: *HR* FentaNYL (PF) 100 MCG/2 ML VIAL ONE ×2 (09:32→12:48)
[2022-07-17] MEDS ORDERED: Sugammadex Sodium 200 MG/2 ML VIAL IV ONE (09:35)
[2022-07-17] MEDS ORDERED: Ondansetron 4 MG/2 ML VIAL ONE (09:35)
[2022-07-17] MEDS ORDERED: Albuterol 2.5 MG/3 ML NEBULIZER IH PRN (11:39)
[2022-07-17] MEDS ORDERED: Ondansetron 4 MG/2 ML VIAL IVP PRN (11:39)
[2022-07-17] MEDS ORDERED: *HR* Succinylcholine 200 MG/10 ML VIAL IVP ONE (11:39)
[2022-07-17] MEDS ORDERED: *HR* FentaNYL (PF) 100 MCG/2 ML VIAL IVP PRN (11:39)
[2022-07-17] MEDS ORDERED: Vancomycin 1,000 MG, Sodium Chloride IRRigation 1,000 ML IR ONE ×2 (11:55→15:59)
[2022-07-17] MEDS ORDERED: Acetaminophen IV 1,000 MG/100 ML BAG IVPB ONE (12:43)
[2022-07-17] MEDS ORDERED: *HR* Dextrose 50 % in Water (Syg) 50 ML SYRINGE IVP PRN (15:59)
[2022-07-17] MEDS ORDERED: Naloxone 0.4 MG/ML INJ IVP PRN (15:59)
[2022-07-17] MEDS ORDERED: D5% in Water 1,000 ML IVC PRN (15:59)
[2022-07-17] MEDS ORDERED: hydrALAZINE 25 MG TABLET PO PRN (15:59)
[2022-07-17] MEDS ORDERED: Melatonin 3 MG TABLET PO PRN (15:59)
[2022-07-17] MEDS ORDERED: Dextrose Gel 15 GM/37.5 ML TUBE PO PRN ×2 (15:59)
[2022-07-17] MEDS ORDERED: Potassium Chloride 40 MEQ/200 ML BAG IVPB PRN (15:59)
[2022-07-17] MEDS ORDERED: Ondansetron ODT 4 MG TAB.RAPDIS SL PRN (15:59)
[2022-07-17] MEDS ORDERED: Mirtazapine 15 MG TABLET PO SCH (21:00)
[2022-07-17] MEDS: rOPINIRole 1 MG TABLET PO SCH (21:04)
[2022-07-17] MEDS: Acetaminophen 325 MG TABLET PO PRN (21:06)
[2022-07-18] MEDS: *HR* Heparin 5,000 UNIT/ML VIAL SQ SCH ×3 (05:27→20:50)
[2022-07-18] MEDS: Acetaminophen 325 MG TABLET PO PRN (05:28)
[2022-07-18] MEDS: Piperacillin/Tazobactam 3.375 GM in 0.9 % Sodium Chloride Mini Bag 100 ML IVPB SCH ×2 (09:17→16:35)
[2022-07-18] MEDS: Insulin LISPRO 300 UNITS/3 ML VIAL SUBQ SCH ×4 (09:27→20:48)
[2022-07-18] MEDS: Nicotine 21 MG PATCH.TD24 TD SCH (09:28)
[2022-07-18] MEDS: carvediloL 25 MG TABLET PO SCH ×2 (10:57→16:37)
[2022-07-18] MEDS: Loratadine 10 MG TABLET PO SCH (10:57)
[2022-07-18] MEDS: Aspirin Enteric Coated 81 MG Tablet PO SCH (10:57)
[2022-07-18] MEDS: Thiamine (B-1) 100 MG TABLET PO SCH (10:58)
[2022-07-18] MEDS: amLODIPine 5 MG TABLET PO SCH (10:58)
[2022-07-18] MEDS: ALPRAZolam 1 MG TABLET PO SCH ×3 (10:58→20:49)
[2022-07-18] MEDS: polyethylene glycoL 3350 17 GM POWD.PACK PO SCH (10:58)
[2022-07-18] MEDS: QUEtiapine Fumarate 25 MG TABLET PO SCH ×2 (10:58→20:50)
[2022-07-18] MEDS: FLUoxetine 20 MG CAPSULE PO SCH ×2 (10:58→20:49)
[2022-07-18] MEDS: Folic Acid 1 MG TABLET PO SCH (10:58)
[2022-07-18 11:55] LABS: VBG HCO3 26 mEq/L (21-27); VBG PCO2 39 mmHg (41-51); VBG PH 7.42 pH Units (7.32-7.42); VBG PO2 196 mmHg (25-50)
[2022-07-18 12:00] LABS: Hematocrit 25.5 % (37.5-50.1); Hemoglobin 7.9 g/dL (12.9-16.9); Mean Corpuscular Hemoglobin 28.4 pg (28.0-33.3); Mean Corpuscular Volume 91.7 fL (83.0-100.0); Mean Platelet Volume 9.1 fL (9.4-12.4); Platelet Count 433 K/mcL (140-400); Red Blood Count 2.78 M/mcL (4.19-5.50); Red Cell Distribution Width 14.4 % (11.5-14.5); White Blood Count 17.7 K/mcL (4.3-11.1)
[2022-07-18 12:22] LABS: Calcium 8.1 mg/dL (8.6-10.3); Potassium 3.8 mEq/L (3.5-5.1)
[2022-07-18] MEDS: rOPINIRole 1 MG TABLET PO SCH (20:49)
[2022-07-19] MEDS: Piperacillin/Tazobactam 3.375 GM in 0.9 % Sodium Chloride Mini Bag 100 ML IVPB SCH ×2 (00:55→08:35)
[2022-07-19 01:28] LABS: Hematocrit 25.5 % (37.5-50.1); Hemoglobin 7.6 g/dL (12.9-16.9); Mean Corpuscular HGB Conc 29.8 g/dL (31.6-35.5); Mean Corpuscular Hemoglobin 27.8 pg (28.0-33.3); Mean Corpuscular Volume 93.4 fL (83.0-100.0); Platelet Count 416 K/mcL (140-400); Red Blood Count 2.73 M/mcL (4.19-5.50); Red Cell Distribution Width 14.5 % (11.5-14.5); White Blood Count 16.1 K/mcL (4.3-11.1)
[2022-07-19 01:47] LABS: Calcium 7.9 mg/dL (8.6-10.3); Potassium 3.7 mEq/L (3.5-5.1)
[2022-07-19] MEDS: *HR* Heparin 5,000 UNIT/ML VIAL SQ SCH ×3 (05:14→20:33)
[2022-07-19] MEDS: Loratadine 10 MG TABLET PO SCH (08:33)
[2022-07-19] MEDS: amLODIPine 5 MG TABLET PO SCH (08:33)
[2022-07-19] MEDS: Thiamine (B-1) 100 MG TABLET PO SCH (08:33)
[2022-07-19] MEDS: carvediloL 25 MG TABLET PO SCH ×2 (08:33→16:32)
[2022-07-19] MEDS: Aspirin Enteric Coated 81 MG Tablet PO SCH (08:33)
[2022-07-19] MEDS: polyethylene glycoL 3350 17 GM POWD.PACK PO SCH (08:34)
[2022-07-19] MEDS: ALPRAZolam 1 MG TABLET PO SCH ×3 (08:34→20:32)
[2022-07-19] MEDS: FLUoxetine 20 MG CAPSULE PO SCH ×2 (08:34→20:32)
[2022-07-19] MEDS: QUEtiapine Fumarate 25 MG TABLET PO SCH ×2 (08:34→20:32)
[2022-07-19] MEDS: Nicotine 21 MG PATCH.TD24 TD SCH (08:34)
[2022-07-19] MEDS: Folic Acid 1 MG TABLET PO SCH (08:34)
[2022-07-19] MEDS: Insulin LISPRO 300 UNITS/3 ML VIAL SUBQ SCH ×4 (08:35→20:27)
[2022-07-19] MEDS: rOPINIRole 1 MG TABLET PO SCH (20:33)
[2022-07-20] MEDS: *HR* Heparin 5,000 UNIT/ML VIAL SQ SCH ×3 (05:08→20:31)
[2022-07-20] MEDS: FLUoxetine 20 MG CAPSULE PO SCH ×2 (10:35→20:09)
[2022-07-20] MEDS: Nicotine 21 MG PATCH.TD24 TD SCH (10:35)
[2022-07-20] MEDS: Folic Acid 1 MG TABLET PO SCH (10:36)
[2022-07-20] MEDS: Aspirin Enteric Coated 81 MG Tablet PO SCH (10:36)
[2022-07-20] MEDS: amLODIPine 5 MG TABLET PO SCH (10:36)
[2022-07-20] MEDS: ALPRAZolam 1 MG TABLET PO SCH ×3 (10:36→20:09)
[2022-07-20] MEDS: Thiamine (B-1) 100 MG TABLET PO SCH (10:36)
[2022-07-20] MEDS: QUEtiapine Fumarate 25 MG TABLET PO SCH ×2 (10:36→20:09)
[2022-07-20] MEDS: Loratadine 10 MG TABLET PO SCH (10:36)
[2022-07-20] MEDS: Insulin LISPRO 300 UNITS/3 ML VIAL SUBQ SCH ×4 (10:37→20:37)
[2022-07-20] MEDS: polyethylene glycoL 3350 17 GM POWD.PACK PO SCH (10:37)
[2022-07-20] MEDS: carvediloL 25 MG TABLET PO SCH ×2 (10:42→16:56)
[2022-07-20] MEDS: rOPINIRole 1 MG TABLET PO SCH (20:09)
[2022-07-21] MEDS ORDERED: Acetaminophen IV 1,000 MG/100 ML BAG IVPB ONE (00:49)
[2022-07-21] MEDS: *HR* Heparin 5,000 UNIT/ML VIAL SQ SCH ×3 (06:41→21:46)
[2022-07-21] MEDS: FLUoxetine 20 MG CAPSULE PO SCH ×2 (09:14→21:46)
[2022-07-21] MEDS: ALPRAZolam 1 MG TABLET PO SCH ×3 (09:14→21:46)
[2022-07-21] MEDS: Thiamine (B-1) 100 MG TABLET PO SCH (09:14)
[2022-07-21] MEDS: Loratadine 10 MG TABLET PO SCH (09:14)
[2022-07-21] MEDS: Aspirin Enteric Coated 81 MG Tablet PO SCH (09:14)
[2022-07-21] MEDS: QUEtiapine Fumarate 25 MG TABLET PO SCH ×2 (09:14→21:46)
[2022-07-21] MEDS: carvediloL 25 MG TABLET PO SCH ×2 (09:14→17:20)
[2022-07-21] MEDS: Nicotine 21 MG PATCH.TD24 TD SCH (09:15)
[2022-07-21] MEDS: Folic Acid 1 MG TABLET PO SCH (09:15)
[2022-07-21] MEDS: polyethylene glycoL 3350 17 GM POWD.PACK PO SCH (09:15)
[2022-07-21] MEDS: amLODIPine 5 MG TABLET PO SCH (09:15)
[2022-07-21] MEDS: *HR* OxyCODONE/APAP 5/325 TABLET PO PRN ×3 (09:17→21:51)
[2022-07-21] MEDS: Insulin LISPRO 300 UNITS/3 ML VIAL SUBQ SCH ×4 (09:19→21:49)
[2022-07-21] MEDS: Furosemide 20 MG TABLET PO SCH ×2 (10:07→17:20)
[2022-07-21] MEDS ORDERED: Moderna COVID-19 Vac ,BIVALENT BOOSTER 50 MCG/0.5 ML VIAL IM ONE (11:45)
[2022-07-21 12:45] LABS: Influenza A PCR Negative (Negative); Influenza B PCR Negative (Negative); Resp. Syncytial Virus PCR Negative (Negative)
[2022-07-21 13:13] LABS: SARS-CoV-2 by PCR (In House) Positive (Negative)
[2022-07-21 13:28] LABS: Hematocrit 25.1 % (37.5-50.1); Hemoglobin 7.8 g/dL (12.9-16.9); Mean Corpuscular HGB Conc 31.1 g/dL (31.6-35.5); Mean Platelet Volume 9.1 fL (9.4-12.4); Platelet Count 411 K/mcL (140-400); Red Blood Count 2.79 M/mcL (4.19-5.50); Red Cell Distribution Width 14.1 % (11.5-14.5); White Blood Count 14.5 K/mcL (4.3-11.1)
[2022-07-21 13:57] LABS: Calcium 8.1 mg/dL (8.6-10.3); Potassium 3.2 mEq/L (3.5-5.1)
[2022-07-21] MEDS: rOPINIRole 1 MG TABLET PO SCH (21:46)
[2022-07-22] MEDS: *HR* Heparin 5,000 UNIT/ML VIAL SQ SCH ×2 (05:05→16:47)
[2022-07-22] MEDS: Folic Acid 1 MG TABLET PO SCH (07:46)
[2022-07-22] MEDS: Thiamine (B-1) 100 MG TABLET PO SCH (07:46)
[2022-07-22] MEDS: Aspirin Enteric Coated 81 MG Tablet PO SCH (07:46)
[2022-07-22] MEDS: carvediloL 25 MG TABLET PO SCH ×2 (07:46→16:47)
[2022-07-22] MEDS: QUEtiapine Fumarate 25 MG TABLET PO SCH ×2 (07:47→21:47)
[2022-07-22] MEDS: Furosemide 20 MG TABLET PO SCH ×2 (07:47→16:47)
[2022-07-22] MEDS: FLUoxetine 20 MG CAPSULE PO SCH ×2 (07:47→21:47)
[2022-07-22] MEDS: Nicotine 21 MG PATCH.TD24 TD SCH (07:47)
[2022-07-22] MEDS: amLODIPine 5 MG TABLET PO SCH (07:47)
[2022-07-22] MEDS: Loratadine 10 MG TABLET PO SCH (07:47)
[2022-07-22] MEDS: ALPRAZolam 1 MG TABLET PO SCH ×3 (07:47→21:47)
[2022-07-22] MEDS: polyethylene glycoL 3350 17 GM POWD.PACK PO SCH (07:47)
[2022-07-22] MEDS: Insulin LISPRO 300 UNITS/3 ML VIAL SUBQ SCH ×4 (07:48→22:14)
[2022-07-22] MEDS: rOPINIRole 1 MG TABLET PO SCH (21:46)
[2022-07-23] MEDS: *HR* Heparin 5,000 UNIT/ML VIAL SQ SCH ×2 (05:05→17:18)
[2022-07-23] MEDS: Insulin LISPRO 300 UNITS/3 ML VIAL SUBQ SCH ×4 (08:22→23:37)
[2022-07-23] MEDS ORDERED: Acetaminophen 325 MG TABLET PO PRN (08:25)
[2022-07-23] MEDS: Loratadine 10 MG TABLET PO SCH (09:05)
[2022-07-23] MEDS: QUEtiapine Fumarate 25 MG TABLET PO SCH ×2 (09:05→23:35)
[2022-07-23] MEDS: Folic Acid 1 MG TABLET PO SCH (09:05)
[2022-07-23] MEDS: Thiamine (B-1) 100 MG TABLET PO SCH (09:05)
[2022-07-23] MEDS: ALPRAZolam 1 MG TABLET PO SCH ×3 (09:05→23:35)
[2022-07-23] MEDS: carvediloL 25 MG TABLET PO SCH ×2 (09:05→17:18)
[2022-07-23] MEDS: Aspirin Enteric Coated 81 MG Tablet PO SCH (09:05)
[2022-07-23] MEDS: amLODIPine 5 MG TABLET PO SCH (09:05)
[2022-07-23] MEDS: FLUoxetine 20 MG CAPSULE PO SCH ×2 (09:05→23:35)
[2022-07-23] MEDS: Furosemide 20 MG TABLET PO SCH ×2 (09:05→17:18)
[2022-07-23] MEDS: Nicotine 21 MG PATCH.TD24 TD SCH (09:06)
[2022-07-23] MEDS: polyethylene glycoL 3350 17 GM POWD.PACK PO SCH (09:06)
[2022-07-23] MEDS: rOPINIRole 1 MG TABLET PO SCH (23:35)
[2022-07-23] MEDS: *HR* OxyCODONE/APAP 5/325 TABLET PO PRN (23:35)
[2022-07-24] MEDS: *HR* Heparin 5,000 UNIT/ML VIAL SQ SCH ×2 (06:37→18:50)
[2022-07-24] MEDS: Nicotine 21 MG PATCH.TD24 TD SCH (08:13)
[2022-07-24] MEDS: polyethylene glycoL 3350 17 GM POWD.PACK PO SCH (08:13)
[2022-07-24] MEDS: QUEtiapine Fumarate 25 MG TABLET PO SCH (08:16)
[2022-07-24] MEDS: Aspirin Enteric Coated 81 MG Tablet PO SCH (08:16)
[2022-07-24] MEDS: Furosemide 20 MG TABLET PO SCH ×2 (08:16→16:35)
[2022-07-24] MEDS: Thiamine (B-1) 100 MG TABLET PO SCH (08:16)
[2022-07-24] MEDS: Folic Acid 1 MG TABLET PO SCH (08:16)
[2022-07-24] MEDS: Loratadine 10 MG TABLET PO SCH (08:16)
[2022-07-24] MEDS: carvediloL 25 MG TABLET PO SCH ×2 (08:16→16:35)
[2022-07-24] MEDS: ALPRAZolam 1 MG TABLET PO SCH ×2 (08:16→13:49)
[2022-07-24] MEDS: amLODIPine 5 MG TABLET PO SCH (08:16)
[2022-07-24] MEDS: FLUoxetine 20 MG CAPSULE PO SCH (08:16)
[2022-07-24] MEDS: Insulin LISPRO 300 UNITS/3 ML VIAL SUBQ SCH ×3 (08:17→17:36)
[2022-07-24] MEDS: *HR* OxyCODONE/APAP 5/325 TABLET PO PRN (13:49)
[2022-07-24 16:28] VITALS: BP 135/75; PULSE 66; TEMP 98.1; O2SAT 90
== END 2022-07-24 20:50 | DRG 166 ==
LOC: 2ANU → SUATTDRO 19:25 → ICNU 07-01 09:51 → 2NNU 07-04 12:27 → ICNU 07-06 11:17 → 2NNU 07-12 17:50 → 2ANU 07-21 11:10
PROVIDERS: ADMIT Internal Medicine; ATTEND Student in an Organized Health Care Education/Training Program

== ENCOUNTER 2022-08-05 19:22 | Inpatient (IN) ==
[2022-08-05] MEDS ORDERED: Naloxone 0.4 MG/ML INJ IVP PRN (21:19)
[2022-08-05] MEDS: Norepinephrine 4 MG/254 ML IV.SOLN IVC SCH (22:02)
[2022-08-05 22:24] LABS: Hemoglobin 10.5 g/dL (12.9-16.9); Mean Platelet Volume 9.2 fL (9.4-12.4)
[2022-08-05 22:25] LABS: Basophils # 0.1 K/mcL (0.0-0.2); Basophils % 0.5 %; Eosinophils # 0.2 K/mcL (0.0-0.6); Eosinophils % 0.8 %; Hematocrit 35.7 % (37.5-50.1); Immature Granulocytes % 2.2 % (0-4); Lymphocytes # 2.4 K/mcL (0.6-4.6); Lymphocytes % 9.4 %; Mean Corpuscular HGB Conc 29.4 g/dL (31.6-35.5); Mean Corpuscular Hemoglobin 26.6 pg (28.0-33.3); Mean Corpuscular Volume 90.6 fL (83.0-100.0); Monocytes # 1.9 K/mcL (0.0-1.3); Monocytes % 7.3 %; Neutrophils # 20.7 K/mcL (1.6-8.9); Platelet Count 659 K/mcL (140-400); Red Blood Count 3.94 M/mcL (4.19-5.50); Red Cell Distribution Width 14.2 % (11.5-14.5); Segmented Neutrophils % 79.8 %; White Blood Count 25.9 K/mcL (4.3-11.1)
[2022-08-05 22:45] LABS: Albumin 3.6 g/dL (3.5-5.7); Albumin/Globulin Ratio 0.7 (1.1-2.2); Bilirubin,Total 0.5 mg/dL (0.3-1.0); Calcium 9.1 mg/dL (8.6-10.3); Globulin 5.1 g/dL (2.4-3.5); Potassium 6.2 mEq/L (3.5-5.1); Total Protein 8.7 g/dL (6.4-8.9)
[2022-08-05 22:52] LABS: Platelet Estimate Increased (Normal)
[2022-08-05] MEDS ORDERED: Ringers Solution, Lactated 500 ML IVC ONE (23:30)
[2022-08-06] MEDS: Piperacillin/Tazobactam 3.375 GM in 0.9 % Sodium Chloride Mini Bag 100 ML IVPB SCH ×3 (00:24→20:30)
[2022-08-06] MEDS: Norepinephrine 4 MG/254 ML IV.SOLN IVC SCH ×3 (00:25→20:30)
[2022-08-06 01:27] LABS: Bacteria,Urine Few per hpf (None-Few); Bilirubin,Urine Negative (Negative); Blood,Urine Negative (Negative); Clarity,Urine Clear (Clear); Color,Urine Yellow (Yellow); Glucose,Urine (UA) 500 mg/dL (Normal); Hyaline Casts,Urine Many per lpf (None Seen); Ketones,Urine Negative (Negative); Leukocyte Esterase,Urine Negative (Negative); Mucus,Urine Few per lpf (None-Few); Nitrite,Urine Negative (Negative); PH,Urine 6.5 pH Units (5.0-8.0); Protein,Urine 200 mg/dL (Neg-Trace); Specific Gravity,Urine 1.016 (1.010-1.025); Sperm,Urine Present per hpf (None Seen); Squamous Epithelial Cell,Urine Few per hpf (None-Few); Urobilinogen,Urine Normal (Normal)
[2022-08-06 01:35] LABS: Sodium, Urine 77.7 mEq/L
[2022-08-06 03:46] LABS: Basophils # 0.1 K/mcL (0.0-0.2); Basophils % 0.6 %; Eosinophils # 0.2 K/mcL (0.0-0.6); Eosinophils % 0.9 %; Hematocrit 33.1 % (37.5-50.1); Hemoglobin 9.8 g/dL (12.9-16.9); Immature Granulocytes % 1.5 % (0-4); Lymphocytes % 14.4 %; Mean Corpuscular HGB Conc 29.6 g/dL (31.6-35.5); Mean Corpuscular Hemoglobin 26.8 pg (28.0-33.3); Mean Corpuscular Volume 90.7 fL (83.0-100.0); Mean Platelet Volume 9.2 fL (9.4-12.4); Monocytes # 1.4 K/mcL (0.0-1.3); Monocytes % 6.8 %; Neutrophils # 15.5 K/mcL (1.6-8.9); Platelet Count 594 K/mcL (140-400); Red Blood Count 3.65 M/mcL (4.19-5.50); Red Cell Distribution Width 14.3 % (11.5-14.5); Segmented Neutrophils % 75.8 %; White Blood Count 20.5 K/mcL (4.3-11.1)
[2022-08-06 04:06] LABS: Albumin 3.3 g/dL (3.5-5.7); Albumin/Globulin Ratio 0.7 (1.1-2.2); Bilirubin,Total 0.4 mg/dL (0.3-1.0); Calcium 8.8 mg/dL (8.6-10.3); Globulin 4.7 g/dL (2.4-3.5); Potassium 5.5 mEq/L (3.5-5.1)
[2022-08-06] MEDS ORDERED: D5% in Water 1,000 ML IVC PRN (09:06)
[2022-08-06] MEDS ORDERED: *HR* Dextrose 50 % in Water (Syg) 50 ML SYRINGE IVP PRN (09:06)
[2022-08-06] MEDS ORDERED: Dextrose Gel 15 GM/37.5 ML TUBE PO PRN ×2 (09:06)
[2022-08-06] MEDS: Fluconazole 200 MG/100 ML 100 MG/50 ML BAG IVPB SCH (09:16)
[2022-08-06 10:07] LABS: Calcium 8.7 mg/dL (8.6-10.3); Potassium 5.4 mEq/L (3.5-5.1)
[2022-08-06] MEDS ORDERED: Sodium Bicarbonate 150 MEQ in D5% in Water 1,000 ML IVC SCH (10:30)
[2022-08-06] MEDS: Insulin LISPRO 300 UNITS/3 ML VIAL SUBQ SCH ×2 (11:33→15:52)
[2022-08-06] MEDS ORDERED: *HR* OxyCODONE Immed Rel 5 MG TABLET PO PRN (11:40)
[2022-08-06 14:28] LABS: Calcium 8.6 mg/dL (8.6-10.3); Potassium 5.2 mEq/L (3.5-5.1)
[2022-08-06] MEDS: *HR* Heparin 5,000 UNIT/ML VIAL SQ SCH ×2 (15:03→20:31)
[2022-08-06] MEDS: 0.9 % Sodium Chloride 1,000 ML IVC SCH (20:29)
[2022-08-06] MEDS: Sodium Bicarbonate 150 MEQ in D5% in Water 1,000 ML IVC SCH (20:36)
[2022-08-06 20:47] LABS: Calcium 8.1 mg/dL (8.6-10.3); Potassium 4.5 mEq/L (3.5-5.1)
[2022-08-06] MEDS ORDERED: Insulin LISPRO 300 UNITS/3 ML VIAL SUBQ SCH (21:00)
[2022-08-07] MEDS: 0.9 % Sodium Chloride 1,000 ML IVC SCH ×2 (02:14→22:06)
[2022-08-07 03:10] LABS: Hematocrit 26.9 % (37.5-50.1); Mean Corpuscular HGB Conc 30.1 g/dL (31.6-35.5); Mean Corpuscular Hemoglobin 26.1 pg (28.0-33.3); Mean Corpuscular Volume 86.8 fL (83.0-100.0); Platelet Count 448 K/mcL (140-400); Red Cell Distribution Width 14.2 % (11.5-14.5); White Blood Count 12.6 K/mcL (4.3-11.1)
[2022-08-07 03:16] LABS: Hemoglobin 8.1 g/dL (12.9-16.9)
[2022-08-07 03:21] LABS: Calcium 8.1 mg/dL (8.6-10.3); Potassium 3.9 mEq/L (3.5-5.1)
[2022-08-07] MEDS: Norepinephrine 4 MG/254 ML IV.SOLN IVC SCH (03:48)
[2022-08-07] MEDS: Sodium Bicarbonate 150 MEQ in D5% in Water 1,000 ML IVC SCH (03:57)
[2022-08-07] MEDS: *HR* Heparin 5,000 UNIT/ML VIAL SQ SCH ×3 (06:30→21:55)
[2022-08-07] MEDS: Insulin LISPRO 300 UNITS/3 ML VIAL SUBQ SCH ×4 (06:35→22:08)
[2022-08-07] MEDS: Piperacillin/Tazobactam 3.375 GM in 0.9 % Sodium Chloride Mini Bag 100 ML IVPB SCH ×2 (08:54→23:39)
[2022-08-07] MEDS: Fluconazole 200 MG/100 ML 100 MG/50 ML BAG IVPB SCH (09:52)
[2022-08-07 12:05] LABS: Calcium 7.9 mg/dL (8.6-10.3); Potassium 3.9 mEq/L (3.5-5.1)
[2022-08-07] MEDS ORDERED: Dextrose Gel 15 GM/37.5 ML TUBE PO PRN ×2 (15:56)
[2022-08-07] MEDS ORDERED: Naloxone 0.4 MG/ML INJ IVP PRN (15:56)
[2022-08-07] MEDS ORDERED: *HR* Dextrose 50 % in Water (Syg) 50 ML SYRINGE IVP PRN (15:56)
[2022-08-07] MEDS ORDERED: D5% in Water 1,000 ML IVC PRN (15:56)
[2022-08-07] MEDS: *HR* OxyCODONE Immed Rel 5 MG TABLET PO PRN (18:18)
[2022-08-07 20:55] LABS: Calcium 8.2 mg/dL (8.6-10.3); Potassium 3.5 mEq/L (3.5-5.1)
[2022-08-08] MEDS: *HR* OxyCODONE Immed Rel 5 MG TABLET PO PRN ×2 (04:20→20:19)
[2022-08-08] MEDS: 0.9 % Sodium Chloride 1,000 ML IVC SCH ×5 (04:24→18:28)
[2022-08-08 04:37] LABS: Hematocrit 28.7 % (37.5-50.1); Hemoglobin 8.9 g/dL (12.9-16.9); Mean Corpuscular Hemoglobin 26.4 pg (28.0-33.3); Mean Corpuscular Volume 85.2 fL (83.0-100.0); Mean Platelet Volume 8.9 fL (9.4-12.4); Platelet Count 439 K/mcL (140-400); Red Blood Count 3.37 M/mcL (4.19-5.50); Red Cell Distribution Width 13.8 % (11.5-14.5); White Blood Count 9.1 K/mcL (4.3-11.1)
[2022-08-08 04:48] LABS: Calcium 8.2 mg/dL (8.6-10.3); Potassium 3.3 mEq/L (3.5-5.1)
[2022-08-08] MEDS: *HR* Heparin 5,000 UNIT/ML VIAL SQ SCH ×3 (06:19→21:47)
[2022-08-08] MEDS: Insulin LISPRO 300 UNITS/3 ML VIAL SUBQ SCH ×4 (07:19→21:55)
[2022-08-08] MEDS: Piperacillin/Tazobactam 3.375 GM in 0.9 % Sodium Chloride Mini Bag 100 ML IVPB SCH ×2 (08:05→16:38)
[2022-08-08] MEDS ORDERED: Fluconazole 200 MG/100 ML 100 MG/50 ML BAG IVPB SCH (09:00)
[2022-08-08] MEDS: Sodium Bicarbonate 150 MEQ in D5% in Water 1,000 ML IVC SCH (09:38)
[2022-08-08] MEDS: Norepinephrine 4 MG/254 ML IV.SOLN IVC SCH (09:38)
[2022-08-08 14:03] LABS: Calcium 8.4 mg/dL (8.6-10.3); Potassium 3.3 mEq/L (3.5-5.1)
[2022-08-08] MEDS: ALPRAZolam 1 MG TABLET PO SCH ×2 (15:14→20:20)
[2022-08-08] MEDS: carvediloL 25 MG TABLET PO SCH (16:38)
[2022-08-08] MEDS: rOPINIRole 1 MG TABLET PO SCH (20:19)
[2022-08-08] MEDS: FLUoxetine 20 MG CAPSULE PO SCH (20:19)
[2022-08-08] MEDS: QUEtiapine Fumarate 25 MG TABLET PO SCH (20:19)
[2022-08-09] MEDS: Piperacillin/Tazobactam 3.375 GM in 0.9 % Sodium Chloride Mini Bag 100 ML IVPB SCH ×3 (00:06→17:47)
[2022-08-09] MEDS: 0.9 % Sodium Chloride 1,000 ML IVC SCH ×3 (00:12→13:09)
[2022-08-09 04:27] LABS: Hematocrit 26.2 % (37.5-50.1); Hemoglobin 8.1 g/dL (12.9-16.9); Mean Corpuscular HGB Conc 30.9 g/dL (31.6-35.5); Mean Corpuscular Hemoglobin 26.9 pg (28.0-33.3); Mean Platelet Volume 8.7 fL (9.4-12.4); Platelet Count 360 K/mcL (140-400); Red Blood Count 3.01 M/mcL (4.19-5.50); White Blood Count 8.2 K/mcL (4.3-11.1)
[2022-08-09 04:47] LABS: Potassium 3.4 mEq/L (3.5-5.1)
[2022-08-09] MEDS: *HR* Heparin 5,000 UNIT/ML VIAL SQ SCH ×3 (06:14→22:22)
[2022-08-09] MEDS: Insulin LISPRO 300 UNITS/3 ML VIAL SUBQ SCH ×4 (07:53→21:36)
[2022-08-09] MEDS: Aspirin Enteric Coated 81 MG Tablet PO SCH (08:05)
[2022-08-09] MEDS: QUEtiapine Fumarate 25 MG TABLET PO SCH ×2 (08:05→20:41)
[2022-08-09] MEDS: *HR* OxyCODONE Immed Rel 5 MG TABLET PO PRN ×2 (08:05→18:55)
[2022-08-09] MEDS: amLODIPine 5 MG TABLET PO SCH (08:05)
[2022-08-09] MEDS: FLUoxetine 20 MG CAPSULE PO SCH ×2 (08:05→20:41)
[2022-08-09] MEDS: Magnesium Oxide 400 MG TABLET PO SCH (08:05)
[2022-08-09] MEDS: carvediloL 25 MG TABLET PO SCH ×2 (08:06→17:47)
[2022-08-09] MEDS: ALPRAZolam 1 MG TABLET PO SCH ×3 (08:06→21:35)
[2022-08-09] MEDS: Nicotine 21 MG PATCH.TD24 TD SCH (10:11)
[2022-08-09] MEDS: rOPINIRole 1 MG TABLET PO SCH (20:41)
[2022-08-10] MEDS: Piperacillin/Tazobactam 3.375 GM in 0.9 % Sodium Chloride Mini Bag 100 ML IVPB SCH ×3 (01:53→15:40)
[2022-08-10] MEDS: *HR* Heparin 5,000 UNIT/ML VIAL SQ SCH ×3 (05:23→22:27)
[2022-08-10 05:40] LABS: Hematocrit 28.3 % (37.5-50.1); Hemoglobin 8.7 g/dL (12.9-16.9); Mean Corpuscular HGB Conc 30.7 g/dL (31.6-35.5); Mean Corpuscular Hemoglobin 26.8 pg (28.0-33.3); Mean Corpuscular Volume 87.1 fL (83.0-100.0); Mean Platelet Volume 8.8 fL (9.4-12.4); Platelet Count 328 K/mcL (140-400); Red Blood Count 3.25 M/mcL (4.19-5.50); Red Cell Distribution Width 13.8 % (11.5-14.5); White Blood Count 9.2 K/mcL (4.3-11.1)
[2022-08-10 05:59] LABS: Calcium 8.2 mg/dL (8.6-10.3); Potassium 3.4 mEq/L (3.5-5.1)
[2022-08-10] MEDS: 0.9 % Sodium Chloride 1,000 ML IVC SCH (07:38)
[2022-08-10] MEDS ORDERED: Cyanocobalamin (B-12) 1,000 MCG/ML VIAL SQ ONE (07:54)
[2022-08-10] MEDS: Insulin LISPRO 300 UNITS/3 ML VIAL SUBQ SCH ×4 (08:03→22:25)
[2022-08-10] MEDS: Nicotine 21 MG PATCH.TD24 TD SCH (09:23)
[2022-08-10] MEDS: carvediloL 25 MG TABLET PO SCH ×2 (09:23→15:38)
[2022-08-10] MEDS: Magnesium Oxide 400 MG TABLET PO SCH (09:24)
[2022-08-10] MEDS: Isosorbide MONOnitrate (24 HR) 60 MG TAB.ER.24H PO SCH (09:25)
[2022-08-10] MEDS: QUEtiapine Fumarate 25 MG TABLET PO SCH ×2 (09:25→22:26)
[2022-08-10] MEDS: ALPRAZolam 1 MG TABLET PO SCH ×3 (09:26→22:26)
[2022-08-10] MEDS: Aspirin Enteric Coated 81 MG Tablet PO SCH (09:26)
[2022-08-10] MEDS: Lactobacillus 1 EACH CAP.SPRINK PO SCH ×2 (09:27→22:26)
[2022-08-10] MEDS: amLODIPine 5 MG TABLET PO SCH (09:27)
[2022-08-10] MEDS: *HR* OxyCODONE Immed Rel 5 MG TABLET PO PRN (10:12)
[2022-08-10] MEDS: FLUoxetine 20 MG CAPSULE PO SCH ×2 (10:42→22:26)
[2022-08-10] MEDS: rOPINIRole 1 MG TABLET PO SCH (22:26)
[2022-08-11] MEDS: Piperacillin/Tazobactam 3.375 GM in 0.9 % Sodium Chloride Mini Bag 100 ML IVPB SCH ×3 (00:45→19:29)
[2022-08-11 02:20] LABS: Basophils # 0.1 K/mcL (0.0-0.2); Eosinophils # 0.6 K/mcL (0.0-0.6); Eosinophils % 5.6 %; Hematocrit 26.4 % (37.5-50.1); Hemoglobin 8.1 g/dL (12.9-16.9); Lymphocytes # 2.7 K/mcL (0.6-4.6); Lymphocytes % 27.3 %; Mean Corpuscular HGB Conc 30.7 g/dL (31.6-35.5); Mean Corpuscular Hemoglobin 26.4 pg (28.0-33.3); Monocytes # 0.9 K/mcL (0.0-1.3); Monocytes % 8.7 %; Neutrophils # 5.5 K/mcL (1.6-8.9); Platelet Count 344 K/mcL (140-400); Red Blood Count 3.07 M/mcL (4.19-5.50); Red Cell Distribution Width 14.1 % (11.5-14.5); Segmented Neutrophils % 56.4 %; White Blood Count 9.8 K/mcL (4.3-11.1)
[2022-08-11 02:46] LABS: Albumin 2.9 g/dL (3.5-5.7); Albumin/Globulin Ratio 0.8 (1.1-2.2); Bilirubin,Indirect 0.2 mg/dL (0.0-1.0); Bilirubin,Total 0.2 mg/dL (0.3-1.0); Calcium 8.3 mg/dL (8.6-10.3); Globulin 3.7 g/dL (2.4-3.5); Magnesium 1.7 mg/dL (1.6-2.6); Phosphorous 2.9 mg/dL (2.7-4.5); Potassium 3.6 mEq/L (3.5-5.1); Total Protein 6.6 g/dL (6.4-8.9)
[2022-08-11 03:03] LABS: Folate 7.7 ng/mL (3.0-16.0)
[2022-08-11] MEDS: *HR* Heparin 5,000 UNIT/ML VIAL SQ SCH ×3 (06:01→21:18)
[2022-08-11] MEDS: Insulin LISPRO 300 UNITS/3 ML VIAL SUBQ SCH ×4 (08:56→22:21)
[2022-08-11] MEDS: amLODIPine 5 MG TABLET PO SCH (09:27)
[2022-08-11] MEDS: Magnesium Oxide 400 MG TABLET PO SCH (09:28)
[2022-08-11] MEDS: Aspirin Enteric Coated 81 MG Tablet PO SCH (09:28)
[2022-08-11] MEDS: Isosorbide MONOnitrate (24 HR) 60 MG TAB.ER.24H PO SCH (09:28)
[2022-08-11] MEDS: Nicotine 21 MG PATCH.TD24 TD SCH (09:28)
[2022-08-11] MEDS: Lactobacillus 1 EACH CAP.SPRINK PO SCH ×2 (09:28→21:17)
[2022-08-11] MEDS: ALPRAZolam 1 MG TABLET PO SCH ×3 (09:28→21:18)
[2022-08-11] MEDS: carvediloL 25 MG TABLET PO SCH ×2 (09:28→18:05)
[2022-08-11] MEDS: QUEtiapine Fumarate 25 MG TABLET PO SCH ×2 (09:28→21:18)
[2022-08-11] MEDS: FLUoxetine 20 MG CAPSULE PO SCH ×2 (09:28→21:17)
[2022-08-11] MEDS: Cyanocobalamin (B-12) 1,000 MCG/ML VIAL SQ SCH (09:29)
[2022-08-11] MEDS: rOPINIRole 1 MG TABLET PO SCH (21:21)
[2022-08-11 23:24] VITALS: O2SAT 97
[2022-08-12] MEDS: Piperacillin/Tazobactam 3.375 GM in 0.9 % Sodium Chloride Mini Bag 100 ML IVPB SCH ×2 (02:09→11:19)
[2022-08-12] MEDS: *HR* Heparin 5,000 UNIT/ML VIAL SQ SCH ×2 (05:20→13:54)
[2022-08-12 08:11] VITALS: PULSE 73
[2022-08-12] MEDS: Insulin LISPRO 300 UNITS/3 ML VIAL SUBQ SCH ×2 (08:45→11:42)
[2022-08-12] MEDS: Magnesium Oxide 400 MG TABLET PO SCH (08:56)
[2022-08-12] MEDS: ALPRAZolam 1 MG TABLET PO SCH ×2 (08:56→13:56)
[2022-08-12] MEDS: Lactobacillus 1 EACH CAP.SPRINK PO SCH (08:57)
[2022-08-12] MEDS: carvediloL 25 MG TABLET PO SCH (08:57)
[2022-08-12] MEDS: FLUoxetine 20 MG CAPSULE PO SCH (08:57)
[2022-08-12] MEDS: Aspirin Enteric Coated 81 MG Tablet PO SCH (08:58)
[2022-08-12] MEDS: Isosorbide MONOnitrate (24 HR) 60 MG TAB.ER.24H PO SCH (08:58)
[2022-08-12] MEDS: QUEtiapine Fumarate 25 MG TABLET PO SCH (08:58)
[2022-08-12] MEDS ORDERED: NIFEdipine XL (24 HR) 60 MG TAB.ER.24 PO SCH (09:00)
[2022-08-12] MEDS: Nicotine 21 MG PATCH.TD24 TD SCH (09:04)
[2022-08-12] MEDS: Cyanocobalamin (B-12) 1,000 MCG/ML VIAL SQ SCH (09:05)
[2022-08-12 11:05] LABS: Basophils # 0.1 K/mcL (0.0-0.2); Basophils % 0.9 %; Eosinophils # 0.5 K/mcL (0.0-0.6); Eosinophils % 4.3 %; Hematocrit 29.4 % (37.5-50.1); Hemoglobin 9.2 g/dL (12.9-16.9); Lymphocytes # 2.1 K/mcL (0.6-4.6); Lymphocytes % 19.1 %; Mean Corpuscular HGB Conc 31.3 g/dL (31.6-35.5); Mean Corpuscular Hemoglobin 26.8 pg (28.0-33.3); Mean Corpuscular Volume 85.7 fL (83.0-100.0); Mean Platelet Volume 8.9 fL (9.4-12.4); Monocytes # 0.8 K/mcL (0.0-1.3); Monocytes % 7.4 %; Neutrophils # 7.5 K/mcL (1.6-8.9); Platelet Count 347 K/mcL (140-400); Red Blood Count 3.43 M/mcL (4.19-5.50); Red Cell Distribution Width 14.6 % (11.5-14.5); Segmented Neutrophils % 67.3 %; White Blood Count 11.2 K/mcL (4.3-11.1)
[2022-08-12 11:16] VITALS: BP 133/63; TEMP 98.1
[2022-08-12 11:22] LABS: Magnesium 1.6 mg/dL (1.6-2.6); Potassium 3.9 mEq/L (3.5-5.1)
[2022-08-12] MEDS: *HR* OxyCODONE Immed Rel 5 MG TABLET PO PRN (16:22)
== END 2022-08-12 18:09 | DRG 720 ==
LOC: ICNU → SUATTDRO 21:19 → 2ANU 08-07 17:51
PROVIDERS: ADMIT Internal Medicine; ATTEND Pharmacist